=== PATIENT | male | born 1980 | race Two or more races ===

== ENCOUNTER 2023-01-11 15:14 | Inpatient (IN) ==
[2023-01-11] MEDS ORDERED: NS 1,000 ML IV 1,000 ML ONE (15:27)
[2023-01-11] MEDS ORDERED: ZOFRAN INJ 4 MG VIAL ONE ×3 (15:27→21:44)
[2023-01-11] MEDS ORDERED: ZOFRAN INJ 4 MG VIAL IVP ONE ×2 (15:46→18:22)
[2023-01-11] MEDS ORDERED: NS 1,000 ML IV 1,000 ML IV ONE (15:46)
--- NOTE | 2023-01-11 16:08 | DR.ABDMALE ---
HPI Time seen Time Seen by Provider: 01/11/23 16:07 PCP Primary Care Physician: NFD Complaint Chief Complaint Doctors Comments: 42 y/o male, currently an inmate, brought in with abdominal pain. Having constant, diffuse abdominal pain over the past 4 da ys. worse with moving, palpation. Nothing makes it better. Denies fever, chills, bowel or bladder issues. No h/o prior abdominal surgeries. Denies medical problems. Chief Complaint:: PT TO ER WITH C/O NAUSEA AND VOMITING FOR FOUR DAYS ( 5 TIMES IN 24 HOURS , AND ITS BILE COLORED), PT REPORTS THAT HIS ABD IS BURNING AND STINGING ALL OVER , WALKING MAKES PAIN WORSE,BR COVID-19 Coronavirus risk:travel/contact w/high risk person: No Has patient experienced Coronavirus symptoms: No Reviewed Nurses Notes Review: Yes Source History provided by:: Patient Mode of arrival Mode of Arrival: Wheelchair Timing Onset of Chief Complaint: 01/08/23 PMH PMH Past Medical History: No Past Surgical History: No Family History History of Family Medical Conditions: No Social History Does patient currently use any type of tobacco product: No Have you used tobacco products in the last 12 months: No Type of Tobacco Use: None Does any household member use tobacco: No Alcohol Use: None Do you use any recreational Drugs:: No Lives With: Family Lives Where: Home Travel Risk Coronavirus risk:travel/contact w/high risk person: No Has patient experienced Coronavirus symptoms: No Infectious screening In the last 2 months have you had wt loss of >10#?: NO Have you had fever, night sweats or hemotysis?: No Have you traveled outside the country in the last 6 months?: No Isolation: Standard ROS Review of Systems Constitutional: No Symptoms Reported Eyes: No Symptoms Reported ENTM: No Symptoms Reported Respiratoy: No Symptoms Reported Cardiovascular: No Symptoms Reported Gastrointestinal/Abdominal: See HPI Genitourinary: No Symptoms Reported Neurological: No Symptoms Reported Musculoskeletal: No Symptoms Reported Integumentary: No Symptoms Reported Hematologic/Lymphatic: No Symptoms Reported All Other Systems: Reviewed and Negative PE Vital Signs Vital Signs: Temp Pulse Resp BP Pulse Ox 01/11/23 19:15 111 H 23 96 01/11/23 19:00 153/106 01/11/23 19:00 117 H 27 H 96 01/11/23 19:00 153/106 01/11/23 18:49 154/109 01/11/23 18:49 114 H 26 H 98 01/11/23 18:45 86 29 H 97 01/11/23 18:30 104 H 28 H 98 01/11/23 18:30 150/94 01/11/23 18:55 22 01/11/23 18:15 104 H 35 H 99 01/11/23 18:00 102 H 22 100 01/11/23 18:00 145/90 01/11/23 17:45 103 H 23 99 01/11/23 17:30 141/96 01/11/23 17:30 106 H 32 H 99 01/11/23 17:15 109 H 29 H 99 01/11/23 17:00 111 H 31 H 98 01/11/23 17:00 150/76 01/11/23 17:00 111 H 31 H 98 01/11/23 17:00 150/76 01/11/23 16:45 106 H 23 98 01/11/23 16:30 101 H 25 H 100 01/11/23 16:30 144/88 01/11/23 16:15 105 H 23 100 01/11/23 16:00 104 H 21 99 01/11/23 16:00 149/92 01/11/23 15:45 109 H 21 98 01/11/23 15:30 118 H 29 H 96 01/11/23 15:30 142/95 01/11/23 15:27 120 H 31 H 97 01/11/23 15:16 98.8 F 131 H 22 139/97 96 General General Appearance: Alert and In No Apparent Distress Eyes Eye exam: PERRL and EOMI ENT ENT Exam: Normal Exam and Mucous Membranes Moist Neck Neck Exam: Normal Inspection Respiratory Respiratory Exam: Normal Lung Sounds Bilat; negative Accessory Muscle Use or Respiratory Distress Cardiovascular Cardiovascular Exam: Regular Rate, Normal Rhythm and Normal Heart Sounds Abdominal Exam Abdominal Exam: Hypoactive Bowel Sounds (+ degree of distension, with increased tympany) Abdominal Tenderness: Diffuse (with degree of rigidity, has guarding and rebound. ) Extremeties Extremities Exam: Normal Inspection Neurologic Neurological Exam: Alert, Oriented X3 and CN II-XII Intact; negative Motor Sensory Deficit Skin Skin Exam: Warm and Dry COURSE Treatment Treatment: 42 y/o inmate, ill x 4 days with abdominal pain. Exam highly concerning for a surgical abdomen, possible perforation. W/u initiated. PT given IV fluids, IV zofran. 1831 - labs were overall acceptable, excpet for low sodium, 129. Acute abdomen series does not show free air, but does have marked intestinal distension. CT of the abd/pelvis w/IV contrast, shows obstructive changes, with a short segment of the sigmoid colon with wall thickening, concerning for neoplastic process. Discussed with surgery, Dr Gama, will admit. Pt givne IV morphine/zofran for pain. NG tube inserted. ROR Labs Reviewed Result Diagrams: 01/13/23 05:35 01/13/23 05:35 Laboratory: WBC 9.7 X10^3/uL (3.6-10.0) 01/11/23 15:45 RBC 5.62 X10^6/uL (4.7-6.0) 01/11/23 15:45 Hgb 17.4 g/dL (13.5-18.0) 01/11/23 15:45 Hct 48.0 % (42.0-54.0) 01/11/23 15:45 MCV 85.4 fL (80.0-100.0) 01/11/23 15:45 MCH 31.0 pg (27.0-34.0) 01/11/23 15:45 MCHC 36.3 g/dL (33.0-35.0) H 01/11/23 15:45 RDW 13.4 % (11.6-16.5) 01/11/23 15:45 Plt Count 431 X10^3/uL (150.0-450.0) 01/11/23 15:45 MPV 8.4 fL (7.4-11.0) 01/11/23 15:45 Neut % (Auto) 65.6 % (42.0-75.0) 01/11/23 15:45 Lymph % (Auto) 20.9 % (21.0-51.0) L 01/11/23 15:45 [place] % (Auto) 12.6 % (0.0-13.0) 01/11/23 15:45 Eos % (Auto) 0.6 % (0.9-2.9) L 01/11/23 15:45 Baso % (Auto) 0.3 % (0.2-1.0) 01/11/23 15:45 Neut # (Auto) 6.4 x10^3/uL (2.2-4.8) H 01/11/23 15:45 Lymph # (Auto) 2.0 X10^3/uL (1.3-2.9) 01/11/23 15:45 [place] # (Auto) 1.2 x10^3/uL (0.3-0.8) H 01/11/23 15:45 Eos # (Auto) 0.1 x10^3/uL (0.0-0.2) 01/11/23 15:45 Baso # (Auto) 0.0 X10^3/uL (0.0-0.1) 01/11/23 15:45 Absolute Nucleated RBC 0.4 /100WBC 01/11/23 15:45 Sodium 126 mmol/L (136-145) L 01/11/23 15:45 Corrected Sodium 128 mmol/L (136-145) L 01/11/23 15:45 Potassium 3.7 mmol/L (3.5-5.1) 01/11/23 15:45 Chloride 88 mmol/L (98-107) L 01/11/23 15:45 Carbon Dioxide 29.0 mmol/L (21-32) 01/11/23 15:45 BUN 28 mg/dL (7-18) H 01/11/23 15:45 Creatinine 0.91 mg/dL (0.70-1.30) 01/11/23 15:45 Est GFR (MDRD) Af Amer > 60 (>60) 01/11/23 15:45 Est GFR (MDRD) Non-Af > 60 (>60) 01/11/23 15:45 Glucose 179 mg/dL (65-99) H 01/11/23 15:45 Calcium 8.2 mg/dL (8.5-10.1) L 01/11/23 15:45 Corrected Calcium TNP 01/11/23 15:45 Total Bilirubin 1.60 mg/dL (0.2-1.0) H 01/11/23 15:45 AST 18 Units/L (15-37) 01/11/23 15:45 ALT 16 Units/L (12-78) 01/11/23 15:45 Alkaline Phosphatase 66 Units/L (46-116) 01/11/23 15:45 Total Protein 7.4 g/dL (6.4-8.2) 01/11/23 15:45 Albumin 3.7 g/dL (3.4-5.0) 01/11/23 15:45 Globulin 3.7 g/dL (2.5-4.5) 01/11/23 15:45 Albumin/Globulin Ratio 1.0 Ratio (1.1-2.1) L 01/11/23 15:45 Lipase 41 Units/L (73-393) L 01/11/23 15:45 Opioid Opioid Risk Tool Age (Lauro box if 16-45): Yes History of Preadolescent Sexual Abuse: No Total: 1 Total Score Risk Category: Low Risk Copyright: Umesh CHACON predicting aberrant behaviors Discharge Plan Diagnosis Discharge Problem: Intestinal obstruction, Hyponatremia Discharge Plan Patient Disposition: ADMITTED INPATIENT Condition: Stable
[2023-01-11 16:23] LABS: EOSINOPHILS # (AUTO) 0.1 x10^3/uL (0.0-0.2); MEAN PLATELET VOLUME 8.4 fL (7.4-11.0)
[2023-01-11 16:27] LABS: BASOPHILS % (AUTO) 0.3 % (0.2-1.0); EOSINOPHILS % (AUTO) 0.6 % (0.9-2.9); MEAN CORPUSCULAR VOLUME 85.4 fL (80.0-100.0); MONOCYTES # (AUTO) 1.2 x10^3/uL (0.3-0.8)
[2023-01-11 16:34] LABS: ALANINE AMINOTRANSFERASE 16 Units/L (12-78); ALBUMIN 3.7 g/dL (3.4-5.0); ALKALINE PHOSPHATASE 66 Units/L (46-116); ASPARTATE AMINO TRANSFERASE 18 Units/L (15-37); BLOOD UREA NITROGEN 28 mg/dL (7-18); CALCIUM 8.2 mg/dL (8.5-10.1); CHLORIDE 88 mmol/L (98-107); COR NA(FOR HYPERGLY) 128 mmol/L (136-145); CREATININE 0.91 mg/dL (0.70-1.30); GLUCOSE 179 mg/dL (65-99); LIPASE 41 Units/L (73-393); POTASSIUM 3.7 mmol/L (3.5-5.1); SODIUM 126 mmol/L (136-145); TOTAL PROTEIN 7.4 g/dL (6.4-8.2); eGFR NON BLACK RACES > 60 (>60)
[2023-01-11 16:37] LABS: HEMOGLOBIN 17.4 g/dL (13.5-18.0); LYMPHOCYTES % (AUTO) 20.9 % (21.0-51.0); MEAN CORPUSCULAR HGB CONC 36.3 g/dL (33.0-35.0); MONOCYTES % (AUTO) 12.6 % (0.0-13.0); NEUTROPHILS # (AUTO) 6.4 x10^3/uL (2.2-4.8); NEUTROPHILS % (AUTO) 65.6 % (42.0-75.0); PLATELET COUNT 431 X10^3/uL (150.0-450.0); RED BLOOD COUNT 5.62 X10^6/uL (4.7-6.0); RED CELL DISTRIBUTION WIDTH 13.4 % (11.6-16.5); WHITE BLOOD COUNT 9.7 X10^3/uL (3.6-10.0)
--- NOTE | 2023-01-11 17:58 | RAD ---
HISTORYAbdominal pain deleteSTUDYACUTE ABDOMEN SERIESCOMPARISONNoneFINDINGSThe trachea is midline. The cardiac silhouette is unremarkable. The lungs are clear without focal infiltrate or effusion. The bony thorax is unremarkable.Flat plate and upright evaluation of the abdomen demonstrates multiple air-filled loops of small bowel within the central abdomen. Distal colonic gas remains present. The findings may be on the basis of developing ileus or early small bowel obstruction. Continued follow-up will be needed in this regard no pathological soft tissue mass or calcification can be observed. The bony structures are grossly intact.IMPRESSION1. No acute cardiopulmonary disease.2. Multiple air-filled loops of distended small bowel within the central abdomen with distal colonic gas. Differential considerations detailed above.Electronically signed by: LAKE SELF (Jan 11, 2023 17:57:41)
--- NOTE | 2023-01-11 18:05 | CT ---
HISTORYSEVERE ABD PAIN, FEVERSTUDYABDOMEN/PELVIS WITH CONCOMPARISONRadiographs from January 11, 2023TECHNIQUEAxial CT images of the abdomen and pelvis were obtained after the administration of IV contrast, 100 mL Omnipaque 350, and reformatted into coronal and sagittal planes for further evaluation.Radiation dose: 209.52 mGy-cm total DLPFINDINGSLung bases are clear.Stomach appears normal.Solid visceral organs of the upper abdomen are unremarkable.Gallbladder appears normal with no biliary dilatation.Homogeneous enhancement of the kidneys without hydronephrosis or hydroureter.Unremarkable appearance of the urinary bladder.Imaged reproductive structures are unremarkable.Short-segment colonic wall thickening in the sigmoid colon. Involved segment measures approximately 5 cm in length with the wall thickening measuring up to 1.3 cm.Moderate stool burden proximal to the short-segment sigmoid colonic wall thickening. Moderate to severe distension of the colon. Pneumatosis coli involving the cecum and ascending colon.Multiple moderately distended gas and fluid-filled loops of small bowel; throughout the abdomen.No evidence of acute appendicitis.No pneumoperitoneum.Small amount of free fluid in the pelvis.No adenopathy.No acute osseous abnormality.IMPRESSIONShort-segment colonic wall thickening involving the distal sigmoid colon is concerning for a neoplastic process. The distal sigmoid obstruction results in moderate to severe distension of the colon, containing gas and stool, in addition to pneumatosis coli involving the cecum and ascending colon. The pneumatosis coli could represent the development of ischemic colitis secondary to the degree of distension. The moderate gas and fluid-filled distention of the small bowel is consistent with a functional obstruction secondary to the colon obstruction.Electronically signed by: Jose De Jesus Newton (Jan 11, 2023 18:04:17)
[2023-01-11] MEDS ORDERED: MORPHINE SULFATE INJ 4 MG IVP ONE (18:22)
[2023-01-11] MEDS ORDERED: MORPHINE SULFATE INJ 4 MG ONE (18:29)
--- NOTE | 2023-01-11 20:00 | RAD ---
EXAM: ABDOMEN X-RAY (or KUB)HISTORY: Nasogastric tube verification status post placement.TECHNIQUE: Supine viewCOMPARISON: None.FINDINGS:Nasogastric tube is noted with a U-shaped loop in the proximal stomach and the distal tip (coursing cephalad) within the lateral gastric fundus.There are up to 5.8 cm dilated air-filled small bowel loops and up to 12.4 cm dilated air-filled right-sided large bowel loops; DDx includes ileus and/or large bowel obstruction in the appropriate clinical setting.There is no gross organomegaly, free intraperitoneal air, or suspicious calcifications seen. The visualized bony structures are within normal limits.IMPRESSION:1. Nasogastric tube is noted with a U-shaped loop in the proximal stomach and the distal tip (coursing cephalad) within the lateral gastric fundus.2. Up to 5.8 cm dilated air-filled small bowel loops and up to 12.4 cm dilated air-filled right-sided large bowel loops; DDx includes ileus and/or large bowel obstruction in the appropriate clinical setting.Electronically signed by: Todd Cifuentes (Jan 11, 2023 19:59:18)
[2023-01-11] MEDS ORDERED: MORPHINE SULFATE INJ 2 MG INJ IVP ONE (21:40)
[2023-01-11] MEDS ORDERED: MORPHINE SULFATE INJ 2 MG INJ ONE (21:44)
[2023-01-11] MEDS: ZOFRAN INJ 4 MG VIAL IVP PRN ×2 (21:52→21:54)
[2023-01-11] MEDS: PROTONIX INJ 40 MG VIAL IVP SCH (22:51)
[2023-01-11] MEDS: D5 1/2 NS 1,000 ML 1,000 ML IV SCH (22:51)
[2023-01-12 00:20] VITALS: BMI 25.1
[2023-01-12 01:08] LABS: BILIRUBIN,URINE NEGATIVE (NEGATIVE); BLOOD/HEMOGLOBIN,URINE 1+ (NEGATIVE); GLUCOSE, URINE NEGATIVE (NEGATIVE); KETONES,URINE 2+ (NEGATIVE); LEUKOCYTE ESTERASE ,URINE NEGATIVE (NEGATIVE); NITRITES,URINE NEGATIVE (NEGATIVE); PH,URINE 6.5 (5.0 - 8.0); PROTEIN,URINE 2+ (NEGATIVE); UROBILINOGEN,URINE NORMAL (NORMAL)
[2023-01-12 01:13] LABS: APPEARANCE,URINE CLEAR (CLEAR); BACTERIA,URINE NEGATIVE /HPF (NEGATIVE); COLOR,URINE DARK YELLOW (YELLOW); RBC,URINE 0-2 /HPF (0-3); SQUAMOUS EPITHELIAL CELL,UR RARE /HPF (NEGATIVE)
[2023-01-12] MEDS: MORPHINE SULFATE INJ 4 MG IVP PRN ×3 (03:16→19:32)
[2023-01-12] MEDS: ZOFRAN INJ 4 MG VIAL IVP PRN (03:16)
[2023-01-12] MEDS: D5 1/2 NS 1,000 ML 1,000 ML IV SCH ×5 (03:48→23:35)
[2023-01-12 06:47] LABS: EOSINOPHILS # (AUTO) 0.1 x10^3/uL (0.0-0.2); HEMOGLOBIN 15.7 g/dL (13.5-18.0)
[2023-01-12 06:56] LABS: ALANINE AMINOTRANSFERASE 13 Units/L (12-78); ALBUMIN 2.9 g/dL (3.4-5.0); ALKALINE PHOSPHATASE 51 Units/L (46-116); ASPARTATE AMINO TRANSFERASE 12 Units/L (15-37); BLOOD UREA NITROGEN 20 mg/dL (7-18); CALCIUM 7.5 mg/dL (8.5-10.1); CARBON DIOXIDE 30.9 mmol/L (21-32); CHLORIDE 92 mmol/L (98-107); COR CA(FOR HYPOALB) 8.4 mg/dL (8.5-10.1); COR NA(FOR HYPERGLY) 130 mmol/L (136-145); CREATININE 0.74 mg/dL (0.70-1.30); GLUCOSE 155 mg/dL (65-99); POTASSIUM 3.4 mmol/L (3.5-5.1); SODIUM 129 mmol/L (136-145); TOTAL PROTEIN 6.1 g/dL (6.4-8.2); eGFR NON BLACK RACES > 60 (>60)
[2023-01-12 07:03] LABS: HEMATOCRIT 43.1 % (42.0-54.0); MEAN CORPUSCULAR HEMOGLOBIN 31.1 pg (27.0-34.0); MEAN CORPUSCULAR VOLUME 85.4 fL (80.0-100.0); RED BLOOD COUNT 5.04 X10^6/uL (4.7-6.0); WHITE BLOOD COUNT 5.9 X10^3/uL (3.6-10.0)
[2023-01-12 07:04] LABS: BASOPHILS % (AUTO) 0.5 % (0.2-1.0); EOSINOPHILS % (AUTO) 1.6 % (0.9-2.9); LYMPHOCYTES # (AUTO) 1.9 X10^3/uL (1.3-2.9); LYMPHOCYTES % (AUTO) 32.8 % (21.0-51.0); MEAN CORPUSCULAR HGB CONC 36.4 g/dL (33.0-35.0); MEAN PLATELET VOLUME 8.1 fL (7.4-11.0); MONOCYTES # (AUTO) 0.8 x10^3/uL (0.3-0.8); MONOCYTES % (AUTO) 13.2 % (0.0-13.0); NEUTROPHILS # (AUTO) 3.1 x10^3/uL (2.2-4.8); NEUTROPHILS % (AUTO) 51.9 % (42.0-75.0); PLATELET COUNT 386 X10^3/uL (150.0-450.0); RED CELL DISTRIBUTION WIDTH 13.4 % (11.6-16.5)
[2023-01-12] MEDS: PROTONIX INJ 40 MG VIAL IVP SCH ×2 (09:01→21:35)
--- NOTE | 2023-01-12 12:10 | DR.PROGNOT ---
HOSPITAL PROGRESS NOTE Progress Note for Day of: Progress Note Date: 01/12/23 Chief Complaint Chief Complaint: moderate abdominal pain with distention , no BM yet . KUB still showing dilated small bowel and RT colon . Na 129..BUN 20 ..LFT normal WBC normal Past Medical Family Social History Past Med/Fam/Surg Hx: No changes since H&P Allergies: Allergies No Known Allergies Allergy (Verified 01/11/23 15:16) Review Of Systems ROS: No change since H&P Vital Signs Vital Signs: Vital Signs Temperature 98.1 F Pulse Rate [Left] 94 Respiratory Rate 18 Blood Pressure [Left Arm] 134/87 O2 Sat by Pulse Oximetry 97 01/12/23 08:00 Temperature 98.1 F Temperature Source Oral Pulse Rate [Left] 94 H Respiratory Rate 18 O2 Sat by Pulse Oximetry 97 Oxygen Delivery Method Room Air Blood Pressure [Left Arm] 134/87 Blood Pressure Mean [Left Arm] 102 Blood Pressure Source [Left Arm] Automatic Cuff Physical Exam Oriented: Normal Respiratory: Normal Cardiovascular: Normal GI:Auscultation: Other (moderate distention and diffuse tenderness , BS+but hypoactive ..) Speech Pattern: Clear and Appropriate Laboratory and Diagnostics Result Diagrams: 01/12/23 05:33 01/12/23 05:33 Labs: Laboratory WBC 5.9 X10^3/uL (3.6-10.0) 01/12/23 05:33 RBC 5.04 X10^6/uL (4.7-6.0) 01/12/23 05:33 Hgb 15.7 g/dL (13.5-18.0) 01/12/23 05:33 Hct 43.1 % (42.0-54.0) 01/12/23 05:33 MCV 85.4 fL (80.0-100.0) 01/12/23 05:33 MCH 31.1 pg (27.0-34.0) 01/12/23 05:33 MCHC 36.4 g/dL (33.0-35.0) H 01/12/23 05:33 RDW 13.4 % (11.6-16.5) 01/12/23 05:33 Plt Count 386 X10^3/uL (150.0-450.0) 01/12/23 05:33 MPV 8.1 fL (7.4-11.0) 01/12/23 05:33 Neut % (Auto) 51.9 % (42.0-75.0) 01/12/23 05:33 Lymph % (Auto) 32.8 % (21.0-51.0) 01/12/23 05:33 [place] % (Auto) 13.2 % (0.0-13.0) H 01/12/23 05:33 Eos % (Auto) 1.6 % (0.9-2.9) 01/12/23 05:33 Baso % (Auto) 0.5 % (0.2-1.0) 01/12/23 05:33 Neut # (Auto) 3.1 x10^3/uL (2.2-4.8) 01/12/23 05:33 Lymph # (Auto) 1.9 X10^3/uL (1.3-2.9) 01/12/23 05:33 [place] # (Auto) 0.8 x10^3/uL (0.3-0.8) 01/12/23 05:33 Eos # (Auto) 0.1 x10^3/uL (0.0-0.2) 01/12/23 05:33 Baso # (Auto) 0.0 X10^3/uL (0.0-0.1) 01/12/23 05:33 Absolute Nucleated RBC 0.2 /100WBC 01/12/23 05:33 Sodium 129 mmol/L (136-145) L 01/12/23 05:33 Corrected Sodium 130 mmol/L (136-145) L 01/12/23 05:33 Potassium 3.4 mmol/L (3.5-5.1) L 01/12/23 05:33 Chloride 92 mmol/L (98-107) L 01/12/23 05:33 Carbon Dioxide 30.9 mmol/L (21-32) 01/12/23 05:33 BUN 20 mg/dL (7-18) H 01/12/23 05:33 Creatinine 0.74 mg/dL (0.70-1.30) 01/12/23 05:33 Est GFR (MDRD) Af Amer > 60 (>60) 01/12/23 05:33 Est GFR (MDRD) Non-Af > 60 (>60) 01/12/23 05:33 Glucose 155 mg/dL (65-99) H 01/12/23 05:33 Calcium 7.5 mg/dL (8.5-10.1) L 01/12/23 05:33 Corrected Calcium 8.4 mg/dL (8.5-10.1) L 01/12/23 05:33 Total Bilirubin 1.10 mg/dL (0.2-1.0) H 01/12/23 05:33 AST 12 Units/L (15-37) L 01/12/23 05:33 ALT 13 Units/L (12-78) 01/12/23 05:33 Alkaline Phosphatase 51 Units/L (46-116) 01/12/23 05:33 Total Protein 6.1 g/dL (6.4-8.2) L 01/12/23 05:33 Albumin 2.9 g/dL (3.4-5.0) L 01/12/23 05:33 Globulin 3.2 g/dL (2.5-4.5) 01/12/23 05:33 Albumin/Globulin Ratio 0.9 Ratio (1.1-2.1) L 01/12/23 05:33 Lipase 41 Units/L (73-393) L 01/11/23 15:45 Specimen Type Clean catch urine 01/12/23 00:57 Urine Color Dark yellow (YELLOW) 01/12/23 00:57 Urine Appearance Clear (CLEAR) 01/12/23 00:57 Urine pH 6.5 (5.0 - 8.0) 01/12/23 00:57 Ur Specific [place] 1.015 (1.000-1.030) 01/12/23 00:57 Urine Protein 2+ (NEGATIVE) 01/12/23 00:57 Urine Glucose (UA) Negative (NEGATIVE) 01/12/23 00:57 Urine Ketones 2+ (NEGATIVE) 01/12/23 00:57 Urine Blood 1+ (NEGATIVE) 01/12/23 00:57 Urine Nitrite Negative (NEGATIVE) 01/12/23 00:57 Urine Bilirubin Negative (NEGATIVE) 01/12/23 00:57 Urine Urobilinogen Normal (NORMAL) 01/12/23 00:57 Ur Leukocyte Esterase Negative (NEGATIVE) 01/12/23 00:57 Urine RBC 0-2 /HPF (0-3) 01/12/23 00:57 Urine WBC None seen /HPF (0-5) 01/12/23 00:57 Ur Squamous Epith Cells Rare /HPF (NEGATIVE) 01/12/23 00:57 Urine Bacteria Negative /HPF (NEGATIVE) 01/12/23 00:57 Ur Culture Indicated? No/not indicated 01/12/23 00:57 Assessment and Plan 1: obstructing lesion of the sigmoid colon. to keep NPO , IVF . colonoscopy . 2: bowel obstruction . same as above . d/w Pt in details .. Problem Patient Problems: Patient Problems (Updated 01/11/23 @ 18:35 by Amaury Reyes) Intestinal obstruction (Acute) K56.609 Hyponatremia (Acute) E87.1
[2023-01-12] MEDS ORDERED: POTASSIUM CHLORIDE LIQ PO PRN (12:37)
[2023-01-12] MEDS ORDERED: KLOR-CON PO PRN (12:37)
[2023-01-12] MEDS ORDERED: MICRO K EXTEN CAP 10 MEQ PO PRN (12:37)
[2023-01-12] MEDS ORDERED: POTASSIUM CHL 60 MEQ/NS 0.45% 500 ML IV PRN (12:37)
[2023-01-12] MEDS ORDERED: MAGNESIUM SULFATE 1 GRAM/100 mL PREMIX 1 G/100 ML BAG IV PRN (12:37)
[2023-01-12] MEDS ORDERED: K-DUR TAB 20 MEQ PO PRN (12:37)
[2023-01-12] MEDS ORDERED: POTASSIUM CHL 40 MEQ/NS 0.45% 500 ML IV PRN (12:37)
[2023-01-12] MEDS: K-RIDER 10 MEQ/NS 100 ML 10 MEQ/100 ML BAG IV PRN ×2 (14:38→16:33)
--- NOTE | 2023-01-12 18:39 | RAD ---
HISTORYSBOSTUDYKUBCOMPARISONKU B from [address] abdomen and pelvis from 1 day prior.TECHNIQUEAbdomen KUB 2 images.FINDINGSThe small-bowel is distended and gas-filled. There is a large amount of stool in the colon which is also distended. Subtle pneumatosis seen in the right lower quadrant as seen on prior study. Contrast is seen in the bowel. There is an NG tube in good position. No free air identified.IMPRESSIONDilated large and small bowel due to obstruction from known sigmoid colon stenosis that may be neoplastic. NG tube in good position.Electronically signed by: Nagi Dempsey (Jan 12, 2023 18:38:14)
[2023-01-12] MEDS ORDERED: FLEET ENEMA ADULT PR ONE (19:39)
[2023-01-12] MEDS ORDERED: FLEET ENEMA ADULT ONE (19:41)
[2023-01-12] MEDS ORDERED: DIPRIVAN VIAL 20 ML ONE (20:04)
[2023-01-12] MEDS ORDERED: NS 1,000 ML IV 1,000 ML ONE (20:18)
[2023-01-12] MEDS: MORPHINE SULFATE INJ 2 MG INJ IVP PRN (22:56)
[2023-01-13] MEDS: MORPHINE SULFATE INJ 2 MG INJ IVP PRN (01:54)
[2023-01-13] MEDS: D5 1/2 NS 1,000 ML 1,000 ML IV SCH ×4 (04:37→22:38)
[2023-01-13 06:28] LABS: BASOPHILS % (AUTO) 0.2 % (0.2-1.0); EOSINOPHILS # (AUTO) 0.2 x10^3/uL (0.0-0.2); EOSINOPHILS % (AUTO) 3.8 % (0.9-2.9); HEMATOCRIT 40.9 % (42.0-54.0); HEMOGLOBIN 14.9 g/dL (13.5-18.0); LYMPHOCYTES # (AUTO) 1.1 X10^3/uL (1.3-2.9); MEAN CORPUSCULAR HGB CONC 36.5 g/dL (33.0-35.0); MEAN CORPUSCULAR VOLUME 84.9 fL (80.0-100.0); MEAN PLATELET VOLUME 7.6 fL (7.4-11.0); MONOCYTES # (AUTO) 0.6 x10^3/uL (0.3-0.8); MONOCYTES % (AUTO) 14.5 % (0.0-13.0); NEUTROPHILS # (AUTO) 2.4 x10^3/uL (2.2-4.8); NEUTROPHILS % (AUTO) 55.5 % (42.0-75.0); PLATELET COUNT 388 X10^3/uL (150.0-450.0); RED BLOOD COUNT 4.82 X10^6/uL (4.7-6.0); RED CELL DISTRIBUTION WIDTH 13.3 % (11.6-16.5); WHITE BLOOD COUNT 4.4 X10^3/uL (3.6-10.0)
[2023-01-13 06:41] LABS: ALANINE AMINOTRANSFERASE 13 Units/L (12-78); ALBUMIN 2.8 g/dL (3.4-5.0); ALKALINE PHOSPHATASE 47 Units/L (46-116); ASPARTATE AMINO TRANSFERASE 9 Units/L (15-37); BLOOD UREA NITROGEN 16 mg/dL (7-18); CALCIUM 7.3 mg/dL (8.5-10.1); CARBON DIOXIDE 32.6 mmol/L (21-32); CHLORIDE 90 mmol/L (98-107); COR CA(FOR HYPOALB) 8.3 mg/dL (8.5-10.1); COR NA(FOR HYPERGLY) 130 mmol/L (136-145); CREATININE 0.76 mg/dL (0.70-1.30); GLUCOSE 158 mg/dL (65-99); POTASSIUM 3.3 mmol/L (3.5-5.1); SODIUM 129 mmol/L (136-145); eGFR NON BLACK RACES > 60 (>60)
[2023-01-13 07:35] LABS: PLATELET MORPHOLOGY COMMENT NORMAL (NORMAL)
--- NOTE | 2023-01-13 08:35 | EKG ---
Test Reason : surgical procedure Blood Pressure : */* mmHG Vent. Rate : 103 BPM Atrial Rate : 103 BPM P-R Int : 144 ms QRS Dur : 78 ms QT Int : 344 ms P-R-T Axes : 35 41 27 degrees QTc Int : 450 ms Sinus tachycardia Otherwise normal ECG No previous ECGs available Confirmed by Mustapha Sanchez ([id number]) on 01/13/2023 6:38:12 PM Referred By: Confirmed By: Mustapha Sanchez
[2023-01-13] MEDS ORDERED: ANCEF VIAL 1 GRAM ONE (08:54)
[2023-01-13] MEDS ORDERED: LR 1,000 ML IV 1,000 ML IV ONE ×2 (08:54→10:34)
[2023-01-13] MEDS ORDERED: NS 100 ML IV 100 ML ONE (08:55)
[2023-01-13] MEDS ORDERED: QUELICIN (OR ANECTINE) ONE (09:01)
[2023-01-13] MEDS ORDERED: ZEMURON 100 MG VIAL ONE (09:01)
[2023-01-13] MEDS ORDERED: FENTANYL VIAL INJ 250 mcg ONE (09:01)
[2023-01-13] MEDS ORDERED: DIPRIVAN VIAL 20 ML ONE (09:01)
[2023-01-13] MEDS ORDERED: VERSED ONE (09:01)
[2023-01-13] MEDS ORDERED: ZOFRAN INJ 4 MG VIAL ONE (09:02)
[2023-01-13] MEDS ORDERED: PEPCID 20 MG VIAL ONE (09:02)
[2023-01-13] MEDS ORDERED: BACTROBAN TOPICAL OINT ONE (09:03)
[2023-01-13] MEDS ORDERED: POLYMYXIN B SULFATE ONE (09:03)
[2023-01-13] MEDS ORDERED: SUPRANE ONE ×2 (09:18→10:39)
[2023-01-13] MEDS ORDERED: DILAUDID INJ ONE (10:07)
[2023-01-13] MEDS ORDERED: BARHEMSYS INJ IVP PRN (10:59)
[2023-01-13] MEDS ORDERED: BENADRYL INJ 50 MG VIAL IVP PRN (10:59)
[2023-01-13] MEDS ORDERED: ZOFRAN INJ 4 MG VIAL IVP PRN (10:59)
[2023-01-13] MEDS ORDERED: REGLAN INJ 10 MG VIAL IVP PRN (10:59)
[2023-01-13] MEDS ORDERED: DILAUDID INJ IVP PRN (10:59)
[2023-01-13] MEDS ORDERED: BRIDION ONE (11:01)
[2023-01-13] MEDS: DILAUDID INJ IVP PRN ×3 (14:25→20:44)
[2023-01-13] MEDS: ZOSYN VIAL 3.375 GRAMS 3.375 G in NS 100 ML IV 100 ML IV SCH ×2 (14:25→20:38)
[2023-01-13] MEDS: PROTONIX INJ 40 MG VIAL IVP SCH ×2 (14:25→20:38)
[2023-01-13] MEDS: ZOFRAN INJ 4 MG VIAL IVP PRN ×2 (14:25→17:42)
[2023-01-13] MEDS: K-RIDER 10 MEQ/NS 100 ML 10 MEQ/100 ML BAG IV PRN ×3 (15:09→18:48)
[2023-01-14] MEDS: ZOSYN VIAL 3.375 GRAMS 3.375 G in NS 100 ML IV 100 ML IV SCH ×3 (03:26→20:37)
[2023-01-14] MEDS: DILAUDID INJ IVP PRN ×4 (03:30→20:38)
--- NOTE | 2023-01-14 06:16 | RAD ---
HISTORYPreop bowel obstructionSTUDYChest AP [id number]/16/2023FINDINGSTher e is a nasogastric tube with its tip and side-port in the expected position of the stomach. Heart size is normal. [place] are normal. Lung duran are clear. No pleural effusions are identified. Bony thorax is unremarkable.IMPRESSIONNo significant abnormality identifiedElectronically signed by: NJ DOYLE (Jan 14, 2023 06:15:32)
[2023-01-14 06:31] LABS: BASOPHILS % (AUTO) 0.3 % (0.2-1.0); EOSINOPHILS # (AUTO) 0.1 x10^3/uL (0.0-0.2); MEAN CORPUSCULAR HEMOGLOBIN 31.3 pg (27.0-34.0); MEAN PLATELET VOLUME 7.4 fL (7.4-11.0); RED BLOOD COUNT 4.47 X10^6/uL (4.7-6.0); WHITE BLOOD COUNT 7.7 X10^3/uL (3.6-10.0)
[2023-01-14 06:34] LABS: EOSINOPHILS % (AUTO) 1.4 % (0.9-2.9); HEMATOCRIT 38.3 % (42.0-54.0); LYMPHOCYTES # (AUTO) 1.4 X10^3/uL (1.3-2.9); LYMPHOCYTES % (AUTO) 18.3 % (21.0-51.0); MEAN CORPUSCULAR HGB CONC 36.5 g/dL (33.0-35.0); MEAN CORPUSCULAR VOLUME 85.7 fL (80.0-100.0); MONOCYTES # (AUTO) 0.9 x10^3/uL (0.3-0.8); MONOCYTES % (AUTO) 12.1 % (0.0-13.0); NEUTROPHILS # (AUTO) 5.2 x10^3/uL (2.2-4.8); NEUTROPHILS % (AUTO) 67.9 % (42.0-75.0); PLATELET COUNT 365 X10^3/uL (150.0-450.0)
[2023-01-14 06:39] LABS: ALANINE AMINOTRANSFERASE 12 Units/L (12-78); ALBUMIN 2.3 g/dL (3.4-5.0); ALKALINE PHOSPHATASE 42 Units/L (46-116); ASPARTATE AMINO TRANSFERASE 11 Units/L (15-37); BLOOD UREA NITROGEN 14 mg/dL (7-18); CALCIUM 7.3 mg/dL (8.5-10.1); CARBON DIOXIDE 30.1 mmol/L (21-32); CHLORIDE 92 mmol/L (98-107); COR CA(FOR HYPOALB) 8.7 mg/dL (8.5-10.1); COR NA(FOR HYPERGLY) 130 mmol/L (136-145); CREATININE 0.75 mg/dL (0.70-1.30); GLUCOSE 137 mg/dL (65-99); SODIUM 129 mmol/L (136-145); TOTAL PROTEIN 5.7 g/dL (6.4-8.2); eGFR NON BLACK RACES > 60 (>60)
[2023-01-14 07:16] LABS: BAND NEUTROPHILS % 12 % (0-10); METAMYELOCYTES % 1; PLATELET MORPHOLOGY COMMENT NORMAL (NORMAL); PROMYELOCYTES % 1
[2023-01-14] MEDS: PROTONIX INJ 40 MG VIAL IVP SCH ×2 (08:44→20:37)
[2023-01-14] MEDS: ZOFRAN INJ 4 MG VIAL IVP PRN (08:44)
[2023-01-14] MEDS: LOVENOX INJ 40 MG SYR SC SCH (08:45)
--- NOTE | 2023-01-14 10:36 | DR.PROGNOT ---
HOSPITAL PROGRESS NOTE Progress Note for Day of: Progress Note Date: 01/14/23 Chief Complaint Chief Complaint: moderate abdominal pain with distention , no BM yet . s/p TC . no nausea or vomiting .. CBC, BUN/Creat normal .. Past Medical Family Social History Past Med/Fam/Surg Hx: No changes since H&P Allergies: Allergies No Known Allergies Allergy (Verified 01/11/23 15:16) Review Of Systems ROS: No change since H&P Vital Signs Vital Signs: Vital Signs Temperature 98.1 F Temperature 98.2 F Pulse Rate [Left] 100 Pulse Rate [Left] 104 Respiratory Rate 15 Respiratory Rate 18 Respiratory Rate 18 Respiratory Rate 18 Respiratory Rate 18 Blood Pressure [Left Arm] 137/75 Blood Pressure [Left Arm] 142/79 O2 Sat by Pulse Oximetry 98 O2 Sat by Pulse Oximetry 99 01/14/23 07:00 01/14/23 08:44 01/14/23 08:00 Temperature 98.1 F Temperature Source Oral Pulse Rate [Left] 100 H Pulse Rhythm [Apical] Regular Pulse Strength [Apical] Normal Respiratory Rate 15 18 Respiratory Depth Normal Respiratory Effort Normal Non-Labored Normal Non-Labored Respiratory Pattern Normal O2 Sat by Pulse Oximetry 98 Oxygen Delivery Method Nasal Cannula Nasal Cannula Oxygen Flow Rate 2 3 Blood Pressure [Left Arm] 137/75 Blood Pressure Mean [Left Arm] 95 Blood Pressure Source [Left Arm] Automatic Cuff Physical Exam Oriented: Normal Respiratory: Normal Cardiovascular: Normal GI:Auscultation: Other (moderate distention and diffuse tenderness , BS+but hypoactive ..) Mood Description: Calm Speech Pattern: Clear and Appropriate Laboratory and Diagnostics Result Diagrams: 01/14/23 05:50 01/14/23 05:50 Labs: Laboratory WBC 7.7 X10^3/uL (3.6-10.0) 01/14/23 05:50 RBC 4.47 X10^6/uL (4.7-6.0) L 01/14/23 05:50 Hgb 14.0 g/dL (13.5-18.0) 01/14/23 05:50 Hct 38.3 % (42.0-54.0) L 01/14/23 05:50 MCV 85.7 fL (80.0-100.0) 01/14/23 05:50 MCH 31.3 pg (27.0-34.0) 01/14/23 05:50 MCHC 36.5 g/dL (33.0-35.0) H 01/14/23 05:50 RDW 13.0 % (11.6-16.5) 01/14/23 05:50 Plt Count 365 X10^3/uL (150.0-450.0) 01/14/23 05:50 Plt Count Comment Adequate (ADEQUATE) 01/14/23 05:50 MPV 7.4 fL (7.4-11.0) 01/14/23 05:50 Neut % (Auto) 67.9 % (42.0-75.0) 01/14/23 05:50 Lymph % (Auto) 18.3 % (21.0-51.0) L 01/14/23 05:50 [place] % (Auto) 12.1 % (0.0-13.0) 01/14/23 05:50 Eos % (Auto) 1.4 % (0.9-2.9) 01/14/23 05:50 Baso % (Auto) 0.3 % (0.2-1.0) 01/14/23 05:50 Neut # (Auto) 5.2 x10^3/uL (2.2-4.8) H 01/14/23 05:50 Lymph # (Auto) 1.4 X10^3/uL (1.3-2.9) 01/14/23 05:50 [place] # (Auto) 0.9 x10^3/uL (0.3-0.8) H 01/14/23 05:50 Eos # (Auto) 0.1 x10^3/uL (0.0-0.2) 01/14/23 05:50 Baso # (Auto) 0.0 X10^3/uL (0.0-0.1) 01/14/23 05:50 Absolute Nucleated RBC 0.1 /100WBC 01/14/23 05:50 Total Counted 100 01/14/23 05:50 Neutrophils % (Manual) 45 % (39-76) 01/14/23 05:50 Band Neutrophils % 12 % (0-10) H 01/14/23 05:50 Lymphocytes % (Manual) 19 % (13-43) 01/14/23 05:50 Monocytes % (Manual) 19 % (4-9) H 01/14/23 05:50 Eosinophils % (Manual) 3 % (0-6) 01/14/23 05:50 Metamyelocytes % 1 01/14/23 05:50 Promyelocytes % 1 01/14/23 05:50 Plt Morphology Comment Normal (NORMAL) 01/14/23 05:50 RBC Morphology Normal (NORMAL) 01/14/23 05:50 Sodium 129 mmol/L (136-145) L 01/14/23 05:50 Corrected Sodium 130 mmol/L (136-145) L 01/14/23 05:50 Potassium 4.0 mmol/L (3.5-5.1) 01/14/23 05:50 Chloride 92 mmol/L (98-107) L 01/14/23 05:50 Carbon Dioxide 30.1 mmol/L (21-32) 01/14/23 05:50 BUN 14 mg/dL (7-18) 01/14/23 05:50 Creatinine 0.75 mg/dL (0.70-1.30) 01/14/23 05:50 Est GFR (MDRD) Af Amer > 60 (>60) 01/14/23 05:50 Est GFR (MDRD) Non-Af > 60 (>60) 01/14/23 05:50 Glucose 137 mg/dL (65-99) H 01/14/23 05:50 Calcium 7.3 mg/dL (8.5-10.1) L 01/14/23 05:50 Corrected Calcium 8.7 mg/dL (8.5-10.1) 01/14/23 05:50 Magnesium 2.3 mg/dL (2.0-2.9) 01/12/23 05:33 Total Bilirubin 1.20 mg/dL (0.2-1.0) H 01/14/23 05:50 AST 11 Units/L (15-37) L 01/14/23 05:50 ALT 12 Units/L (12-78) 01/14/23 05:50 Alkaline Phosphatase 42 Units/L (46-116) L 01/14/23 05:50 Total Protein 5.7 g/dL (6.4-8.2) L 01/14/23 05:50 Albumin 2.3 g/dL (3.4-5.0) L 01/14/23 05:50 Globulin 3.4 g/dL (2.5-4.5) 01/14/23 05:50 Albumin/Globulin Ratio 0.7 Ratio (1.1-2.1) L 01/14/23 05:50 Lipase 41 Units/L (73-393) L 01/11/23 15:45 Specimen Type Clean catch urine 01/12/23 00:57 Urine Color Dark yellow (YELLOW) 01/12/23 00:57 Urine Appearance Clear (CLEAR) 01/12/23 00:57 Urine pH 6.5 (5.0 - 8.0) 01/12/23 00:57 Ur Specific [place] 1.015 (1.000-1.030) 01/12/23 00:57 Urine Protein 2+ (NEGATIVE) 01/12/23 00:57 Urine Glucose (UA) Negative (NEGATIVE) 01/12/23 00:57 Urine Ketones 2+ (NEGATIVE) 01/12/23 00:57 Urine Blood 1+ (NEGATIVE) 01/12/23 00:57 Urine Nitrite Negative (NEGATIVE) 01/12/23 00:57 Urine Bilirubin Negative (NEGATIVE) 01/12/23 00:57 Urine Urobilinogen Normal (NORMAL) 01/12/23 00:57 Ur Leukocyte Esterase Negative (NEGATIVE) 01/12/23 00:57 Urine RBC 0-2 /HPF (0-3) 01/12/23 00:57 Urine WBC None seen /HPF (0-5) 01/12/23 00:57 Ur Squamous Epith Cells Rare /HPF (NEGATIVE) 01/12/23 00:57 Urine Bacteria Negative /HPF (NEGATIVE) 01/12/23 00:57 Ur Culture Indicated? No/not indicated 01/12/23 00:57 Assessment and Plan 1: s/p transverse colostomy for obstructing lesion of the sigmoid colon. same NGT , IVF , OOB ,and PO care .. 2: bowel obstruction . same as above . d/w Pt in details .. Problem Patient Problems: Patient Problems (Updated 01/11/23 @ 18:35 by Amaury Reyes) Intestinal obstruction (Acute) K56.609 Hyponatremia (Acute) E87.1
[2023-01-14] MEDS: D5 1/2 NS 1,000 ML 1,000 ML IV SCH (13:07)
[2023-01-14] MEDS: NS 1,000 ML IV 1,000 ML IV SCH (20:38)
[2023-01-15] MEDS: NS 1,000 ML IV 1,000 ML IV SCH ×5 (00:32→19:54)
[2023-01-15] MEDS: DILAUDID INJ IVP PRN ×5 (00:37→23:43)
[2023-01-15] MEDS: ZOSYN VIAL 3.375 GRAMS 3.375 G in NS 100 ML IV 100 ML IV SCH ×3 (03:17→19:54)
[2023-01-15 06:29] LABS: BASOPHILS % (AUTO) 0.2 % (0.2-1.0); EOSINOPHILS # (AUTO) 0.2 x10^3/uL (0.0-0.2); EOSINOPHILS % (AUTO) 1.7 % (0.9-2.9); HEMATOCRIT 35.2 % (42.0-54.0); HEMOGLOBIN 12.6 g/dL (13.5-18.0); LYMPHOCYTES # (AUTO) 1.5 X10^3/uL (1.3-2.9); LYMPHOCYTES % (AUTO) 14.2 % (21.0-51.0); MEAN CORPUSCULAR HEMOGLOBIN 30.9 pg (27.0-34.0); MEAN CORPUSCULAR HGB CONC 35.7 g/dL (33.0-35.0); MEAN CORPUSCULAR VOLUME 86.5 fL (80.0-100.0); MEAN PLATELET VOLUME 7.6 fL (7.4-11.0); MONOCYTES # (AUTO) 1.4 x10^3/uL (0.3-0.8); MONOCYTES % (AUTO) 13.1 % (0.0-13.0); NEUTROPHILS # (AUTO) 7.5 x10^3/uL (2.2-4.8); NEUTROPHILS % (AUTO) 70.8 % (42.0-75.0); PLATELET COUNT 356 X10^3/uL (150.0-450.0); RED BLOOD COUNT 4.07 X10^6/uL (4.7-6.0); RED CELL DISTRIBUTION WIDTH 13.1 % (11.6-16.5); WHITE BLOOD COUNT 10.6 X10^3/uL (3.6-10.0)
[2023-01-15 06:47] LABS: ALANINE AMINOTRANSFERASE 13 Units/L (12-78); ALBUMIN 2.1 g/dL (3.4-5.0); ALKALINE PHOSPHATASE 45 Units/L (46-116); ASPARTATE AMINO TRANSFERASE 16 Units/L (15-37); BLOOD UREA NITROGEN 15 mg/dL (7-18); CALCIUM 7.5 mg/dL (8.5-10.1); CARBON DIOXIDE 31.8 mmol/L (21-32); CHLORIDE 91 mmol/L (98-107); GLUCOSE 89 mg/dL (65-99); POTASSIUM 3.7 mmol/L (3.5-5.1); SODIUM 129 mmol/L (136-145); TOTAL PROTEIN 5.7 g/dL (6.4-8.2); eGFR NON BLACK RACES > 60 (>60)
[2023-01-15] MEDS: LOVENOX INJ 40 MG SYR SC SCH (08:09)
[2023-01-15] MEDS: PROTONIX INJ 40 MG VIAL IVP SCH ×2 (08:09→20:00)
--- NOTE | 2023-01-15 08:36 | DR.PROGNOT ---
HOSPITAL PROGRESS NOTE Progress Note for Day of: Progress Note Date: 01/15/23 Chief Complaint Chief Complaint: moderate abdominal pain with distention , no BM yet . s/p TC . no nausea or vomiting .. CBC, BUN/Creat normal .. Past Medical Family Social History Past Med/Fam/Surg Hx: No changes since H&P Allergies: Allergies No Known Allergies Allergy (Verified 01/11/23 15:16) Review Of Systems ROS: No change since H&P Vital Signs Vital Signs: Vital Signs Temperature 98.4 F Pulse Rate [Left] 91 Respiratory Rate 20 Respiratory Rate 18 Respiratory Rate 20 Blood Pressure [Left Arm] 144/78 O2 Sat by Pulse Oximetry 97 01/15/23 05:08 01/15/23 07:00 Pulse Rhythm [Apical] Regular Pulse Strength [Apical] Normal Respiratory Depth Normal Respiratory Effort Normal Non-Labored Respiratory Pattern Normal Weight 163 lb 5.8 oz Physical Exam Oriented: Normal Eyes: Normal Ear: Normal Throat: Normal Respiratory: Normal Cardiovascular: Normal GI:Auscultation: Other (moderate distention and diffuse tenderness , BS+but hypoactive ..) Mood Description: Calm Speech Pattern: Clear and Appropriate Laboratory and Diagnostics Result Diagrams: 01/15/23 05:23 01/15/23 05:23 Labs: Laboratory WBC 10.6 X10^3/uL (3.6-10.0) H 01/15/23 05:23 RBC 4.07 X10^6/uL (4.7-6.0) L 01/15/23 05:23 Hgb 12.6 g/dL (13.5-18.0) L 01/15/23 05:23 Hct 35.2 % (42.0-54.0) L 01/15/23 05:23 MCV 86.5 fL (80.0-100.0) 01/15/23 05:23 MCH 30.9 pg (27.0-34.0) 01/15/23 05:23 MCHC 35.7 g/dL (33.0-35.0) H 01/15/23 05:23 RDW 13.1 % (11.6-16.5) 01/15/23 05:23 Plt Count 356 X10^3/uL (150.0-450.0) 01/15/23 05:23 Plt Count Comment Adequate (ADEQUATE) 01/14/23 05:50 MPV 7.6 fL (7.4-11.0) 01/15/23 05:23 Neut % (Auto) 70.8 % (42.0-75.0) 01/15/23 05:23 Lymph % (Auto) 14.2 % (21.0-51.0) L 01/15/23 05:23 [place] % (Auto) 13.1 % (0.0-13.0) H 01/15/23 05:23 Eos % (Auto) 1.7 % (0.9-2.9) 01/15/23 05:23 Baso % (Auto) 0.2 % (0.2-1.0) 01/15/23 05:23 Neut # (Auto) 7.5 x10^3/uL (2.2-4.8) H 01/15/23 05:23 Lymph # (Auto) 1.5 X10^3/uL (1.3-2.9) 01/15/23 05:23 [place] # (Auto) 1.4 x10^3/uL (0.3-0.8) H 01/15/23 05:23 Eos # (Auto) 0.2 x10^3/uL (0.0-0.2) 01/15/23 05:23 Baso # (Auto) 0.0 X10^3/uL (0.0-0.1) 01/15/23 05:23 Absolute Nucleated RBC 0.0 /100WBC 01/15/23 05:23 Total Counted 100 01/14/23 05:50 Neutrophils % (Manual) 45 % (39-76) 01/14/23 05:50 Band Neutrophils % 12 % (0-10) H 01/14/23 05:50 Lymphocytes % (Manual) 19 % (13-43) 01/14/23 05:50 Monocytes % (Manual) 19 % (4-9) H 01/14/23 05:50 Eosinophils % (Manual) 3 % (0-6) 01/14/23 05:50 Metamyelocytes % 1 01/14/23 05:50 Promyelocytes % 1 01/14/23 05:50 Plt Morphology Comment Normal (NORMAL) 01/14/23 05:50 RBC Morphology Normal (NORMAL) 01/14/23 05:50 Sodium 129 mmol/L (136-145) L 01/15/23 05:23 Corrected Sodium TNP 01/15/23 05:23 Potassium 3.7 mmol/L (3.5-5.1) 01/15/23 05:23 Chloride 91 mmol/L (98-107) L 01/15/23 05:23 Carbon Dioxide 31.8 mmol/L (21-32) 01/15/23 05:23 BUN 15 mg/dL (7-18) 01/15/23 05:23 Creatinine 0.70 mg/dL (0.70-1.30) 01/15/23 05:23 Est GFR (MDRD) Af Amer > 60 (>60) 01/15/23 05:23 Est GFR (MDRD) Non-Af > 60 (>60) 01/15/23 05:23 Glucose 89 mg/dL (65-99) 01/15/23 05:23 Calcium 7.5 mg/dL (8.5-10.1) L 01/15/23 05:23 Corrected Calcium 9.0 mg/dL (8.5-10.1) 01/15/23 05:23 Magnesium 2.0 mg/dL (2.0-2.9) 01/15/23 05:23 Total Bilirubin 1.00 mg/dL (0.2-1.0) 01/15/23 05:23 AST 16 Units/L (15-37) 01/15/23 05:23 ALT 13 Units/L (12-78) 01/15/23 05:23 Alkaline Phosphatase 45 Units/L (46-116) L 01/15/23 05:23 Total Protein 5.7 g/dL (6.4-8.2) L 01/15/23 05:23 Albumin 2.1 g/dL (3.4-5.0) L 01/15/23 05:23 Globulin 3.6 g/dL (2.5-4.5) 01/15/23 05:23 Albumin/Globulin Ratio 0.6 Ratio (1.1-2.1) L 01/15/23 05:23 Lipase 41 Units/L (73-393) L 01/11/23 15:45 Specimen Type Clean catch urine 01/12/23 00:57 Urine Color Dark yellow (YELLOW) 01/12/23 00:57 Urine Appearance Clear (CLEAR) 01/12/23 00:57 Urine pH 6.5 (5.0 - 8.0) 01/12/23 00:57 Ur Specific [place] 1.015 (1.000-1.030) 01/12/23 00:57 Urine Protein 2+ (NEGATIVE) 01/12/23 00:57 Urine Glucose (UA) Negative (NEGATIVE) 01/12/23 00:57 Urine Ketones 2+ (NEGATIVE) 01/12/23 00:57 Urine Blood 1+ (NEGATIVE) 01/12/23 00:57 Urine Nitrite Negative (NEGATIVE) 01/12/23 00:57 Urine Bilirubin Negative (NEGATIVE) 01/12/23 00:57 Urine Urobilinogen Normal (NORMAL) 01/12/23 00:57 Ur Leukocyte Esterase Negative (NEGATIVE) 01/12/23 00:57 Urine RBC 0-2 /HPF (0-3) 01/12/23 00:57 Urine WBC None seen /HPF (0-5) 01/12/23 00:57 Ur Squamous Epith Cells Rare /HPF (NEGATIVE) 01/12/23 00:57 Urine Bacteria Negative /HPF (NEGATIVE) 01/12/23 00:57 Ur Culture Indicated? No/not indicated 01/12/23 00:57 Assessment and Plan 1: s/p transverse colostomy for obstructing lesion of the sigmoid colon. to D/C NGT , start full liquid diet ., OOB ,and PO care .. 2: bowel obstruction . same as above . d/w Pt in details .. Problem Patient Problems: Patient Problems (Updated 01/11/23 @ 18:35 by Amaury Reyes) Intestinal obstruction (Acute) K56.609 Hyponatremia (Acute) E87.1
[2023-01-15] MEDS: K-RIDER 10 MEQ/NS 100 ML 10 MEQ/100 ML BAG IV PRN ×2 (08:51→10:32)
--- NOTE | 2023-01-15 14:44 | RAD ---
KURITAISTORY: POST OP SBOStudy: 2 flat views of the abdomenComparison:January 12, 2023Findings:There remain numerous loops of dilated small bowel measuring up to almost 6 cm.No free air..No abnormal calcifications or abnormal soft tissue shadows. No acute bony abnormalities.IMPRESSION:1.Markedly dilated small bowel. Minimal colonic gas is seen. There does appear to be some stool within the left colon. Obstruction must still be considered however postoperative ileus is also consideration. Correlate clinically.Electronically signed by: KAILYN COPELAND (Jan 15, 2023 14:43:50)
[2023-01-15] MEDS: ZOFRAN INJ 4 MG VIAL IVP PRN ×2 (18:34→23:39)
[2023-01-16] MEDS: NS 1,000 ML IV 1,000 ML IV SCH ×2 (01:54→08:49)
[2023-01-16] MEDS: DILAUDID INJ IVP PRN ×6 (02:02→19:53)
[2023-01-16] MEDS: ZOSYN VIAL 3.375 GRAMS 3.375 G in NS 100 ML IV 100 ML IV SCH ×3 (03:00→20:20)
[2023-01-16 05:36] LABS: BASOPHILS % (AUTO) 0.2 % (0.2-1.0); EOSINOPHILS # (AUTO) 0.1 x10^3/uL (0.0-0.2); EOSINOPHILS % (AUTO) 0.7 % (0.9-2.9); HEMATOCRIT 36.6 % (42.0-54.0); HEMOGLOBIN 13.2 g/dL (13.5-18.0); LYMPHOCYTES # (AUTO) 1.2 X10^3/uL (1.3-2.9); LYMPHOCYTES % (AUTO) 9.6 % (21.0-51.0); MEAN CORPUSCULAR HGB CONC 36.1 g/dL (33.0-35.0); MEAN CORPUSCULAR VOLUME 85.9 fL (80.0-100.0); MEAN PLATELET VOLUME 6.7 fL (7.4-11.0); MONOCYTES # (AUTO) 1.1 x10^3/uL (0.3-0.8); MONOCYTES % (AUTO) 9.3 % (0.0-13.0); NEUTROPHILS # (AUTO) 9.7 x10^3/uL (2.2-4.8); NEUTROPHILS % (AUTO) 80.2 % (42.0-75.0); PLATELET COUNT 488 X10^3/uL (150.0-450.0); RED BLOOD COUNT 4.26 X10^6/uL (4.7-6.0); RED CELL DISTRIBUTION WIDTH 13.3 % (11.6-16.5); WHITE BLOOD COUNT 12.1 X10^3/uL (3.6-10.0)
[2023-01-16 05:51] LABS: ALANINE AMINOTRANSFERASE 16 Units/L (12-78); ALBUMIN 2.4 g/dL (3.4-5.0); ALKALINE PHOSPHATASE 47 Units/L (46-116); ASPARTATE AMINO TRANSFERASE 13 Units/L (15-37); BLOOD UREA NITROGEN 14 mg/dL (7-18); CALCIUM 7.5 mg/dL (8.5-10.1); CARBON DIOXIDE 26.6 mmol/L (21-32); CHLORIDE 91 mmol/L (98-107); COR CA(FOR HYPOALB) 8.8 mg/dL (8.5-10.1); COR NA(FOR HYPERGLY) 128 mmol/L (136-145); GLUCOSE 140 mg/dL (65-99); POTASSIUM 3.8 mmol/L (3.5-5.1); SODIUM 127 mmol/L (136-145); TOTAL PROTEIN 6.2 g/dL (6.4-8.2); eGFR NON BLACK RACES > 60 (>60)
[2023-01-16] MEDS: PROTONIX INJ 40 MG VIAL IVP SCH ×2 (08:30→20:35)
[2023-01-16] MEDS: LOVENOX INJ 40 MG SYR SC SCH (08:31)
[2023-01-16] MEDS: ZOFRAN INJ 4 MG VIAL IVP PRN ×2 (08:31→11:05)
--- NOTE | 2023-01-16 09:24 | DR.PROGNOT ---
HOSPITAL PROGRESS NOTE Progress Note for Day of: Progress Note Date: 01/16/23 Chief Complaint Chief Complaint: vomited last night . feeling better today and the colostomy is functioning well today .. WBC 12.1 .. Na 127. afebrile . Past Medical Family Social History Past Med/Fam/Surg Hx: No changes since H&P Allergies: Allergies No Known Allergies Allergy (Verified 01/11/23 15:16) Review Of Systems ROS: No change since H&P Vital Signs Vital Signs: Vital Signs Temperature 97.4 F Temperature 97.7 F Pulse Rate [Left] 105 Pulse Rate [Left] 106 Respiratory Rate 16 Respiratory Rate 22 Respiratory Rate 20 Respiratory Rate 22 Respiratory Rate 26 Respiratory Rate 18 Respiratory Rate 22 Blood Pressure [Left Arm] 151/96 Blood Pressure [Left Arm] 154/93 O2 Sat by Pulse Oximetry 96 O2 Sat by Pulse Oximetry 96 01/16/23 05:26 01/16/23 05:56 01/16/23 07:00 Temperature Temperature Source Pulse Rate [Left] Pulse Rhythm [Apical] Regular Pulse Strength [Apical] Normal Respiratory Rate 22 20 Respiratory Depth Normal Respiratory Effort Normal Non-Labored Normal Non-Labored Normal Non-Labored Respiratory Pattern Normal O2 Sat by Pulse Oximetry Oxygen Delivery Method Blood Pressure [Left Arm] Blood Pressure Mean [Left Arm] Blood Pressure Source [Left Arm] 01/16/23 08:00 01/16/23 08:31 Temperature 97.4 F L Temperature Source Oral Pulse Rate [Left] 105 H Pulse Rhythm [Apical] Pulse Strength [Apical] Respiratory Rate 22 16 Respiratory Depth Respiratory Effort Normal Non-Labored Respiratory Pattern O2 Sat by Pulse Oximetry 96 Oxygen Delivery Method Room Air Blood Pressure [Left Arm] 151/96 Blood Pressure Mean [Left Arm] 114 Blood Pressure Source [Left Arm] Automatic Cuff Physical Exam Oriented: Normal Eyes: Normal Ear: Normal Throat: Normal Respiratory: Normal Cardiovascular: Normal GI:Auscultation: Other (moderate distention and diffuse tenderness , BS+but hypoactive ..) Mood Description: Calm Speech Pattern: Clear and Appropriate Laboratory and Diagnostics Result Diagrams: 01/16/23 05:18 01/16/23 05:18 Labs: Laboratory WBC 12.1 X10^3/uL (3.6-10.0) H 01/16/23 05:18 RBC 4.26 X10^6/uL (4.7-6.0) L 01/16/23 05:18 Hgb 13.2 g/dL (13.5-18.0) L 01/16/23 05:18 Hct 36.6 % (42.0-54.0) L 01/16/23 05:18 MCV 85.9 fL (80.0-100.0) 01/16/23 05:18 MCH 31.0 pg (27.0-34.0) 01/16/23 05:18 MCHC 36.1 g/dL (33.0-35.0) H 01/16/23 05:18 RDW 13.3 % (11.6-16.5) 01/16/23 05:18 Plt Count 488 X10^3/uL (150.0-450.0) H 01/16/23 05:18 Plt Count Comment Adequate (ADEQUATE) 01/14/23 05:50 MPV 6.7 fL (7.4-11.0) L 01/16/23 05:18 Neut % (Auto) 80.2 % (42.0-75.0) H 01/16/23 05:18 Lymph % (Auto) 9.6 % (21.0-51.0) L 01/16/23 05:18 [place] % (Auto) 9.3 % (0.0-13.0) 01/16/23 05:18 Eos % (Auto) 0.7 % (0.9-2.9) L 01/16/23 05:18 Baso % (Auto) 0.2 % (0.2-1.0) 01/16/23 05:18 Neut # (Auto) 9.7 x10^3/uL (2.2-4.8) H 01/16/23 05:18 Lymph # (Auto) 1.2 X10^3/uL (1.3-2.9) L 01/16/23 05:18 [place] # (Auto) 1.1 x10^3/uL (0.3-0.8) H 01/16/23 05:18 Eos # (Auto) 0.1 x10^3/uL (0.0-0.2) 01/16/23 05:18 Baso # (Auto) 0.0 X10^3/uL (0.0-0.1) 01/16/23 05:18 Absolute Nucleated RBC 0.0 /100WBC 01/16/23 05:18 Total Counted 100 01/14/23 05:50 Neutrophils % (Manual) 45 % (39-76) 01/14/23 05:50 Band Neutrophils % 12 % (0-10) H 01/14/23 05:50 Lymphocytes % (Manual) 19 % (13-43) 01/14/23 05:50 Monocytes % (Manual) 19 % (4-9) H 01/14/23 05:50 Eosinophils % (Manual) 3 % (0-6) 01/14/23 05:50 Metamyelocytes % 1 01/14/23 05:50 Promyelocytes % 1 01/14/23 05:50 Plt Morphology Comment Normal (NORMAL) 01/14/23 05:50 RBC Morphology Normal (NORMAL) 01/14/23 05:50 Sodium 127 mmol/L (136-145) L 01/16/23 05:18 Corrected Sodium 128 mmol/L (136-145) L 01/16/23 05:18 Potassium 3.8 mmol/L (3.5-5.1) 01/16/23 05:18 Chloride 91 mmol/L (98-107) L 01/16/23 05:18 Carbon Dioxide 26.6 mmol/L (21-32) 01/16/23 05:18 BUN 14 mg/dL (7-18) 01/16/23 05:18 Creatinine 0.60 mg/dL (0.70-1.30) L 01/16/23 05:18 Est GFR (MDRD) Af Amer > 60 (>60) 01/16/23 05:18 Est GFR (MDRD) Non-Af > 60 (>60) 01/16/23 05:18 Glucose 140 mg/dL (65-99) H 01/16/23 05:18 Calcium 7.5 mg/dL (8.5-10.1) L 01/16/23 05:18 Corrected Calcium 8.8 mg/dL (8.5-10.1) 01/16/23 05:18 Magnesium 2.0 mg/dL (2.0-2.9) 01/15/23 05:23 Total Bilirubin 0.90 mg/dL (0.2-1.0) 01/16/23 05:18 AST 13 Units/L (15-37) L 01/16/23 05:18 ALT 16 Units/L (12-78) 01/16/23 05:18 Alkaline Phosphatase 47 Units/L (46-116) 01/16/23 05:18 Total Protein 6.2 g/dL (6.4-8.2) L 01/16/23 05:18 Albumin 2.4 g/dL (3.4-5.0) L 01/16/23 05:18 Globulin 3.8 g/dL (2.5-4.5) 01/16/23 05:18 Albumin/Globulin Ratio 0.6 Ratio (1.1-2.1) L 01/16/23 05:18 Lipase 41 Units/L (73-393) L 01/11/23 15:45 Carcinoembryonic Ag 1.0 ng/mL (<=3.8) 01/12/23 05:37 Specimen Type Clean catch urine 01/12/23 00:57 Urine Color Dark yellow (YELLOW) 01/12/23 00:57 Urine Appearance Clear (CLEAR) 01/12/23 00:57 Urine pH 6.5 (5.0 - 8.0) 01/12/23 00:57 Ur Specific [place] 1.015 (1.000-1.030) 01/12/23 00:57 Urine Protein 2+ (NEGATIVE) 01/12/23 00:57 Urine Glucose (UA) Negative (NEGATIVE) 01/12/23 00:57 Urine Ketones 2+ (NEGATIVE) 01/12/23 00:57 Urine Blood 1+ (NEGATIVE) 01/12/23 00:57 Urine Nitrite Negative (NEGATIVE) 01/12/23 00:57 Urine Bilirubin Negative (NEGATIVE) 01/12/23 00:57 Urine Urobilinogen Normal (NORMAL) 01/12/23 00:57 Ur Leukocyte Esterase Negative (NEGATIVE) 01/12/23 00:57 Urine RBC 0-2 /HPF (0-3) 01/12/23 00:57 Urine WBC None seen /HPF (0-5) 01/12/23 00:57 Ur Squamous Epith Cells Rare /HPF (NEGATIVE) 01/12/23 00:57 Urine Bacteria Negative /HPF (NEGATIVE) 01/12/23 00:57 Ur Culture Indicated? No/not indicated 01/12/23 00:57 Assessment and Plan 1: s/p transverse colostomy for obstructing lesion of the sigmoid colon. to start on soft diet OOB ,and PO care .. 2: bowel obstruction . same as above . d/w Pt in details .. Problem Patient Problems: Patient Problems (Updated 01/11/23 @ 18:35 by Amaury Reyes) Intestinal obstruction (Acute) K56.609 Hyponatremia (Acute) E87.1
[2023-01-16] MEDS ORDERED: ZOFRAN INJ 4 MG VIAL IVP ONE (11:01)
--- NOTE | 2023-01-16 13:11 | RAD ---
HISTORYN/V, INTESTINAL OBSTRUCTIONSTUDYKUBCOMPARISONRadiograph 01/15/2023, CT abdomen and pelvis 01/11/2023FINDINGSThere is dilatation of small bowel mostly in the upper and middle abdomen. Overall the findings may have decreased slightly since yesterday.There is no obvious pneumoperitoneum on this supine view.Bones are unremarkable. No significant abnormal calcification.IMPRESSION1. Small-bowel dilatation, slightly improvedElectronically signed by: Harsh Abbasi (Jan 16, 2023 13:10:32)
[2023-01-16] MEDS ORDERED: TORADOL 30 MG VIAL ONE (16:14)
[2023-01-16] MEDS: TORADOL 30 MG VIAL IVP PRN (16:15)
--- NOTE | 2023-01-16 18:21 | DR.CONSULT ---
Consult - Consultation for Day of: Date: 01/16/23 - Chief Complaint Chief Complaint: This is a 42-year-old male who was admitted with bowel obstruction secondary to lesion of the sigmoid colon. Sigmoidoscopy with biopsy revealed obstructing circumferential lesion of the sigmoid colon around 30 cm. The patient was very distended and the distention was involving the large and small bowel. Pt is s/p transverse colostomy for obstructing lesion of the sigmoid. Pt is currently under the care of Dr. Gama. Pt is currently on iv hydration and post operative pain control. Pt has episode of vomiting last pm and has refused to eat due to nausea. Pt is on zofran and ppi therapy. Pt had hyponatremia and currently on gentle Iv hydration. - Past Medical History Past Medical History: denies: Diabetes, Hypertension - Past Surgical History Surgical History: No History - Social History Does patient currently use any type of tobacco product: No Have you used tobacco products in the last 12 months: No Type of Tobacco Use: None Does any household member use tobacco: No Alcohol Use: None Drug Use: None - Medications Home Medications: No Known Allergies Allergy (Verified 01/11/23 15:16) CONTINUE taking the following medications NK 01/11/23 [History] - Review of Systems Constitutional: Malaise Eyes: No Symptoms Reported, Vision Change Respiratory: No Symptoms Reported Gastrointestinal: Nausea, Vomiting Genitourinary: No Symptoms Reported Musculoskeletal: No Symptoms Reported Skin: Wound Neurological: No Symptoms Reported - Physical Exam Vital Signs: Vital Signs Temperature 97.9 F Temperature 97.6 F Pulse Rate [Left] 93 Pulse Rate [Left] 105 Respiratory Rate 20 Respiratory Rate 20 Respiratory Rate 20 Respiratory Rate 18 Respiratory Rate 18 Respiratory Rate 18 Respiratory Rate 20 Respiratory Rate 16 Respiratory Rate 22 Blood Pressure [Left Arm] 153/97 Blood Pressure [Left Arm] 154/98 O2 Sat by Pulse Oximetry 97 O2 Sat by Pulse Oximetry 96 01/16/23 15:28 01/16/23 16:03 01/16/23 16:15 Temperature Temperature Source Pulse Rate [Left] Respiratory Rate 18 18 Respiratory Effort Normal Non-Labored Normal Non-Labored O2 Sat by Pulse Oximetry Oxygen Delivery Method Room Air FIO2% 21 Blood Pressure [Left Arm] Blood Pressure Mean [Left Arm] Blood Pressure Source [Left Arm] 01/16/23 16:00 01/16/23 16:15 01/16/23 16:33 Temperature 97.9 F Temperature Source Oral Pulse Rate [Left] 93 H Respiratory Rate 18 20 20 Respiratory Effort Normal Non-Labored Normal Non-Labored O2 Sat by Pulse Oximetry 97 Oxygen Delivery Method Room Air FIO2% Blood Pressure [Left Arm] 153/97 Blood Pressure Mean [Left Arm] 115 Blood Pressure Source [Left Arm] Automatic Cuff 01/16/23 16:45 Temperature Temperature Source Pulse Rate [Left] Respiratory Rate 20 Respiratory Effort Normal Non-Labored O2 Sat by Pulse Oximetry Oxygen Delivery Method FIO2% Blood Pressure [Left Arm] Blood Pressure Mean [Left Arm] Blood Pressure Source [Left Arm] Oriented: Normal Eyes: Normal Ear: Normal Nose: Normal Throat: Dry Respiratory: RLL Diminished, LLL Diminished Cardiovascular: Normal. negative: Murmur, Edema Auscultation: Bowel Sounds: Normal Tenderness: Diffuse Skin: Wound Musculoskeletal: Normal Psychiatric: Anxiety Affect: Anxious Speech Pattern: Clear, Appropriate - Plan Plan: CONTINUE POST OPERATIVE PLAN OF CARE AND CONTROL. GENTLE IV HYDRATION, I&OS. REPEAT AM CBC, CMP - Allergies Allergies/Adverse Reactions: Allergies Allergy/AdvReac Type Severity Reaction Status Date / Time No Known Allergies Allergy Verified 01/11/23 15:16
[2023-01-17] MEDS: DILAUDID INJ IVP PRN (00:50)
[2023-01-17] MEDS: ZOFRAN INJ 4 MG VIAL IVP PRN (00:55)
[2023-01-17] MEDS: NS 1,000 ML IV 1,000 ML IV SCH ×4 (03:08→23:34)
[2023-01-17] MEDS: ZOSYN VIAL 3.375 GRAMS 3.375 G in NS 100 ML IV 100 ML IV SCH ×3 (03:09→21:37)
[2023-01-17 06:06] LABS: BASOPHILS % (AUTO) 0.3 % (0.2-1.0); EOSINOPHILS # (AUTO) 0.1 x10^3/uL (0.0-0.2); EOSINOPHILS % (AUTO) 0.9 % (0.9-2.9); HEMATOCRIT 35.2 % (42.0-54.0); HEMOGLOBIN 12.7 g/dL (13.5-18.0); LYMPHOCYTES # (AUTO) 1.1 X10^3/uL (1.3-2.9); LYMPHOCYTES % (AUTO) 12.9 % (21.0-51.0); MEAN CORPUSCULAR HGB CONC 35.9 g/dL (33.0-35.0); MEAN CORPUSCULAR VOLUME 86.2 fL (80.0-100.0); MEAN PLATELET VOLUME 6.9 fL (7.4-11.0); MONOCYTES # (AUTO) 0.6 x10^3/uL (0.3-0.8); MONOCYTES % (AUTO) 6.7 % (0.0-13.0); NEUTROPHILS % (AUTO) 79.2 % (42.0-75.0); PLATELET COUNT 479 X10^3/uL (150.0-450.0); RED BLOOD COUNT 4.09 X10^6/uL (4.7-6.0); RED CELL DISTRIBUTION WIDTH 13.1 % (11.6-16.5); WHITE BLOOD COUNT 8.8 X10^3/uL (3.6-10.0)
[2023-01-17 06:18] LABS: ALANINE AMINOTRANSFERASE 18 Units/L (12-78); ALBUMIN 2.4 g/dL (3.4-5.0); ALKALINE PHOSPHATASE 44 Units/L (46-116); ASPARTATE AMINO TRANSFERASE 20 Units/L (15-37); BLOOD UREA NITROGEN 16 mg/dL (7-18); CALCIUM 7.4 mg/dL (8.5-10.1); CARBON DIOXIDE 26.3 mmol/L (21-32); CHLORIDE 90 mmol/L (98-107); COR CA(FOR HYPOALB) 8.7 mg/dL (8.5-10.1); GLUCOSE 104 mg/dL (65-99); SODIUM 127 mmol/L (136-145); eGFR NON BLACK RACES > 60 (>60)
[2023-01-17] MEDS: LOVENOX INJ 40 MG SYR SC SCH (09:13)
[2023-01-17] MEDS: TORADOL 30 MG VIAL IVP PRN (09:14)
[2023-01-17] MEDS: PROTONIX INJ 40 MG VIAL IVP SCH ×2 (09:14→21:37)
--- NOTE | 2023-01-17 09:34 | DR.PROGNOT ---
HOSPITAL PROGRESS NOTE Progress Note for Day of: Progress Note Date: 01/17/23 Chief Complaint Chief Complaint: feeling better today and the colostomy is functioning well . still distended but tolerating diet afebrile . Past Medical Family Social History Past Med/Fam/Surg Hx: No changes since H&P Allergies: Allergies No Known Allergies Allergy (Verified 01/11/23 15:16) Review Of Systems ROS: No change since H&P Vital Signs Vital Signs: Vital Signs Temperature 99.7 F Pulse Rate [Left] 92 Respiratory Rate 15 Respiratory Rate 18 Blood Pressure [Left Arm] 150/80 O2 Sat by Pulse Oximetry 95 01/17/23 05:58 01/17/23 08:30 01/17/23 09:14 Respiratory Rate 15 Respiratory Effort Normal Non-Labored Oxygen Delivery Method Room Air Weight 177 lb 0.499 oz Physical Exam Oriented: Normal Eyes: Normal Ear: Normal Nose: Normal Throat: Dry Respiratory: Normal Cardiovascular: Normal; negative Murmur or Edema GI:Auscultation: Normal GI: Tenderness: Diffuse and Other (moderate distention , BS hypoactive .. ) Skin: Wound Musculoskeletal: Normal Psychiatric: Anxiety Mood Description: Calm Affect: Anxious Speech Pattern: Clear and Appropriate Laboratory and Diagnostics Result Diagrams: 01/17/23 05:06 01/17/23 05:06 Labs: Laboratory WBC 8.8 X10^3/uL (3.6-10.0) 01/17/23 05:06 RBC 4.09 X10^6/uL (4.7-6.0) L 01/17/23 05:06 Hgb 12.7 g/dL (13.5-18.0) L 01/17/23 05:06 Hct 35.2 % (42.0-54.0) L 01/17/23 05:06 MCV 86.2 fL (80.0-100.0) 01/17/23 05:06 MCH 31.0 pg (27.0-34.0) 01/17/23 05:06 MCHC 35.9 g/dL (33.0-35.0) H 01/17/23 05:06 RDW 13.1 % (11.6-16.5) 01/17/23 05:06 Plt Count 479 X10^3/uL (150.0-450.0) H 01/17/23 05:06 Plt Count Comment Adequate (ADEQUATE) 01/14/23 05:50 MPV 6.9 fL (7.4-11.0) L 01/17/23 05:06 Neut % (Auto) 79.2 % (42.0-75.0) H 01/17/23 05:06 Lymph % (Auto) 12.9 % (21.0-51.0) L 01/17/23 05:06 [place] % (Auto) 6.7 % (0.0-13.0) 01/17/23 05:06 Eos % (Auto) 0.9 % (0.9-2.9) 01/17/23 05:06 Baso % (Auto) 0.3 % (0.2-1.0) 01/17/23 05:06 Neut # (Auto) 7.0 x10^3/uL (2.2-4.8) H 01/17/23 05:06 Lymph # (Auto) 1.1 X10^3/uL (1.3-2.9) L 01/17/23 05:06 [place] # (Auto) 0.6 x10^3/uL (0.3-0.8) 01/17/23 05:06 Eos # (Auto) 0.1 x10^3/uL (0.0-0.2) 01/17/23 05:06 Baso # (Auto) 0.0 X10^3/uL (0.0-0.1) 01/17/23 05:06 Absolute Nucleated RBC 0.2 /100WBC 01/17/23 05:06 Total Counted 100 01/14/23 05:50 Neutrophils % (Manual) 45 % (39-76) 01/14/23 05:50 Band Neutrophils % 12 % (0-10) H 01/14/23 05:50 Lymphocytes % (Manual) 19 % (13-43) 01/14/23 05:50 Monocytes % (Manual) 19 % (4-9) H 01/14/23 05:50 Eosinophils % (Manual) 3 % (0-6) 01/14/23 05:50 Metamyelocytes % 1 01/14/23 05:50 Promyelocytes % 1 01/14/23 05:50 Plt Morphology Comment Normal (NORMAL) 01/14/23 05:50 RBC Morphology Normal (NORMAL) 01/14/23 05:50 Sodium 127 mmol/L (136-145) L 01/17/23 05:06 Corrected Sodium TNP 01/17/23 05:06 Potassium 4.0 mmol/L (3.5-5.1) 01/17/23 05:06 Chloride 90 mmol/L (98-107) L 01/17/23 05:06 Carbon Dioxide 26.3 mmol/L (21-32) 01/17/23 05:06 BUN 16 mg/dL (7-18) 01/17/23 05:06 Creatinine 0.60 mg/dL (0.70-1.30) L 01/17/23 05:06 Est GFR (MDRD) Af Amer > 60 (>60) 01/17/23 05:06 Est GFR (MDRD) Non-Af > 60 (>60) 01/17/23 05:06 Glucose 104 mg/dL (65-99) H 01/17/23 05:06 Calcium 7.4 mg/dL (8.5-10.1) L 01/17/23 05:06 Corrected Calcium 8.7 mg/dL (8.5-10.1) 01/17/23 05:06 Magnesium 2.0 mg/dL (2.0-2.9) 01/15/23 05:23 Total Bilirubin 0.90 mg/dL (0.2-1.0) 01/17/23 05:06 AST 20 Units/L (15-37) 01/17/23 05:06 ALT 18 Units/L (12-78) 01/17/23 05:06 Alkaline Phosphatase 44 Units/L (46-116) L 01/17/23 05:06 Total Protein 6.0 g/dL (6.4-8.2) L 01/17/23 05:06 Albumin 2.4 g/dL (3.4-5.0) L 01/17/23 05:06 Globulin 3.6 g/dL (2.5-4.5) 01/17/23 05:06 Albumin/Globulin Ratio 0.7 Ratio (1.1-2.1) L 01/17/23 05:06 Lipase 41 Units/L (73-393) L 01/11/23 15:45 Carcinoembryonic Ag 1.0 ng/mL (<=3.8) 01/12/23 05:37 Specimen Type Clean catch urine 01/12/23 00:57 Urine Color Dark yellow (YELLOW) 01/12/23 00:57 Urine Appearance Clear (CLEAR) 01/12/23 00:57 Urine pH 6.5 (5.0 - 8.0) 01/12/23 00:57 Ur Specific [place] 1.015 (1.000-1.030) 01/12/23 00:57 Urine Protein 2+ (NEGATIVE) 01/12/23 00:57 Urine Glucose (UA) Negative (NEGATIVE) 01/12/23 00:57 Urine Ketones 2+ (NEGATIVE) 01/12/23 00:57 Urine Blood 1+ (NEGATIVE) 01/12/23 00:57 Urine Nitrite Negative (NEGATIVE) 01/12/23 00:57 Urine Bilirubin Negative (NEGATIVE) 01/12/23 00:57 Urine Urobilinogen Normal (NORMAL) 01/12/23 00:57 Ur Leukocyte Esterase Negative (NEGATIVE) 01/12/23 00:57 Urine RBC 0-2 /HPF (0-3) 01/12/23 00:57 Urine WBC None seen /HPF (0-5) 01/12/23 00:57 Ur Squamous Epith Cells Rare /HPF (NEGATIVE) 01/12/23 00:57 Urine Bacteria Negative /HPF (NEGATIVE) 01/12/23 00:57 Ur Culture Indicated? No/not indicated 01/12/23 00:57 Assessment and Plan 1: s/p transverse colostomy for obstructing lesion of the sigmoid colon. to start on soft diet OOB ,and PO care .. 2: bowel obstruction , ileus same as above . d/w Pt in details .. Problem Patient Problems: Patient Problems (Updated 01/11/23 @ 18:35 by Amaury Reyes) Intestinal obstruction (Acute) K56.609 Hyponatremia (Acute) E87.1
--- NOTE | 2023-01-17 18:29 | DR.CONSULT ---
Consult - Consultation for Day of: Date: 01/17/23 - Chief Complaint Chief Complaint: This is a 42-year-old male who was admitted with bowel obstruction secondary to lesion of the sigmoid colon. Sigmoidoscopy with biopsy revealed obstructing circumferential lesion of the sigmoid colon around 30 cm. The patient was very distended and the distention was involving the large and small bowel. Pt is s/p transverse colostomy for obstructing lesion of the sigmoid. Pt is currently under the care of Dr. Gama. Pt is currently on iv hydration and post operative pain control. Pt is on IV zosyn, with improved WBC today. Pt has been afebrile and improving po intake. - Past Medical History Past Medical History: denies: Diabetes, Hypertension - Past Surgical History Surgical History: No History - Social History Does patient currently use any type of tobacco product: No Have you used tobacco products in the last 12 months: No Type of Tobacco Use: None Does any household member use tobacco: No Alcohol Use: None Drug Use: None - Medications Home Medications: No Known Allergies Allergy (Verified 01/11/23 15:16) CONTINUE taking the following medications NK 01/11/23 [History] - Review of Systems Constitutional: Weakness Eyes: No Symptoms Reported ENT: No Symptoms Reported Respiratory: No Symptoms Reported Cardiovascular: No Symptoms Reported Gastrointestinal: Nausea, Abdominal Pain Genitourinary: No Symptoms Reported Musculoskeletal: No Symptoms Reported Skin: Wound Neurological: No Symptoms Reported - Physical Exam Vital Signs: Vital Signs Temperature 98.3 F Temperature 97.8 F Pulse Rate [Left] 90 Pulse Rate [Left] 90 Respiratory Rate 20 Respiratory Rate 18 Blood Pressure [Left Arm] 152/89 Blood Pressure [Left Arm] 138/76 O2 Sat by Pulse Oximetry 97 O2 Sat by Pulse Oximetry 97 01/17/23 16:00 Temperature 98.3 F Temperature Source Oral Pulse Rate [Left] 90 Respiratory Rate 20 O2 Sat by Pulse Oximetry 97 Oxygen Delivery Method Room Air Blood Pressure [Left Arm] 152/89 Blood Pressure Mean [Left Arm] 110 Blood Pressure Source [Left Arm] Automatic Cuff Oriented: Normal Eyes: Normal Ear: Normal Nose: Normal Throat: Dry Respiratory: RLL Diminished, LLL Diminished Cardiovascular: Tachycardia. negative: Murmur, Edema : Normal Auscultation: Bowel Sounds: Decreased Tenderness: Diffuse Skin: Wound Musculoskeletal: Normal Psychiatric: Depression Affect: Depressed Speech Pattern: Clear, Appropriate - Plan Plan: CONTINUE POST OPERATIVE PLAN OF CARE AND CONTROL. IV ATBX THERAPY, GENTLE IV HYDRATION, I&OS. REPEAT AM CBC, CMP - Allergies Allergies/Adverse Reactions: Allergies Allergy/AdvReac Type Severity Reaction Status Date / Time No Known Allergies Allergy Verified 01/11/23 15:16
[2023-01-17] MEDS: RESTORIL CAP 15 MG PO PRN (21:30)
[2023-01-18] MEDS: ZOSYN VIAL 3.375 GRAMS 3.375 G in NS 100 ML IV 100 ML IV SCH ×3 (05:00→22:15)
[2023-01-18 05:23] LABS: BASOPHILS % (AUTO) 0.4 % (0.2-1.0); EOSINOPHILS # (AUTO) 0.2 x10^3/uL (0.0-0.2); EOSINOPHILS % (AUTO) 1.9 % (0.9-2.9); HEMATOCRIT 34.2 % (42.0-54.0); HEMOGLOBIN 12.3 g/dL (13.5-18.0); LYMPHOCYTES # (AUTO) 1.6 X10^3/uL (1.3-2.9); MEAN CORPUSCULAR HEMOGLOBIN 30.9 pg (27.0-34.0); MEAN CORPUSCULAR VOLUME 85.9 fL (80.0-100.0); MEAN PLATELET VOLUME 6.7 fL (7.4-11.0); MONOCYTES # (AUTO) 0.7 x10^3/uL (0.3-0.8); MONOCYTES % (AUTO) 7.7 % (0.0-13.0); NEUTROPHILS # (AUTO) 6.7 x10^3/uL (2.2-4.8); PLATELET COUNT 449 X10^3/uL (150.0-450.0); RED BLOOD COUNT 3.99 X10^6/uL (4.7-6.0); RED CELL DISTRIBUTION WIDTH 12.9 % (11.6-16.5); WHITE BLOOD COUNT 9.2 X10^3/uL (3.6-10.0)
[2023-01-18 05:25] LABS: ALANINE AMINOTRANSFERASE 15 Units/L (12-78); ALBUMIN 2.3 g/dL (3.4-5.0); ALKALINE PHOSPHATASE 46 Units/L (46-116); ASPARTATE AMINO TRANSFERASE 20 Units/L (15-37); BLOOD UREA NITROGEN 8 mg/dL (7-18); CALCIUM 7.3 mg/dL (8.5-10.1); CARBON DIOXIDE 29.7 mmol/L (21-32); CHLORIDE 95 mmol/L (98-107); COR CA(FOR HYPOALB) 8.7 mg/dL (8.5-10.1); CREATININE 0.61 mg/dL (0.70-1.30); GLUCOSE 95 mg/dL (65-99); POTASSIUM 3.4 mmol/L (3.5-5.1); SODIUM 133 mmol/L (136-145); TOTAL PROTEIN 5.7 g/dL (6.4-8.2); eGFR NON BLACK RACES > 60 (>60)
[2023-01-18] MEDS ORDERED: PHARMACY CONSULT - POTASSIUM & MAGNESIUM XX SCH (06:00)
[2023-01-18] MEDS ORDERED: K-DUR TAB 20 MEQ PO ONE (06:00)
[2023-01-18] MEDS: NS 1,000 ML IV 1,000 ML IV SCH ×4 (07:07→17:19)
[2023-01-18] MEDS ORDERED: K-DUR TAB 20 MEQ PO SCH (09:00)
[2023-01-18] MEDS: PROTONIX INJ 40 MG VIAL IVP SCH ×2 (09:39→22:13)
[2023-01-18] MEDS: LOVENOX INJ 40 MG SYR SC SCH (09:39)
--- NOTE | 2023-01-18 09:50 | DR.PROGNOT ---
HOSPITAL PROGRESS NOTE Progress Note for Day of: Progress Note Date: 01/18/23 Chief Complaint Chief Complaint: feeling better today , colostomy is functioning well . still with moderate distention but tolerating diet afebrile . Past Medical Family Social History Past Med/Fam/Surg Hx: No changes since H&P Allergies: Allergies No Known Allergies Allergy (Verified 01/11/23 15:16) Review Of Systems ROS: No change since H&P Vital Signs Vital Signs: Vital Signs Temperature 97.9 F Pulse Rate [Left] 99 Respiratory Rate 20 Blood Pressure [Left Arm] 131/79 O2 Sat by Pulse Oximetry 98 Physical Exam Oriented: Normal Eyes: Normal Ear: Normal Nose: Normal Throat: Dry Respiratory: Normal Cardiovascular: Tachycardia; negative Murmur or Edema : Normal GI:Auscultation: Decreased GI: Tenderness: Diffuse Skin: Wound Musculoskeletal: Normal Psychiatric: Depression Mood Description: Calm Affect: Depressed Speech Pattern: Clear and Appropriate Laboratory and Diagnostics Result Diagrams: 01/18/23 04:30 01/18/23 04:30 Labs: Laboratory WBC 9.2 X10^3/uL (3.6-10.0) 01/18/23 04:30 RBC 3.99 X10^6/uL (4.7-6.0) L 01/18/23 04:30 Hgb 12.3 g/dL (13.5-18.0) L 01/18/23 04:30 Hct 34.2 % (42.0-54.0) L 01/18/23 04:30 MCV 85.9 fL (80.0-100.0) 01/18/23 04:30 MCH 30.9 pg (27.0-34.0) 01/18/23 04:30 MCHC 36.0 g/dL (33.0-35.0) H 01/18/23 04:30 RDW 12.9 % (11.6-16.5) 01/18/23 04:30 Plt Count 449 X10^3/uL (150.0-450.0) 01/18/23 04:30 Plt Count Comment Adequate (ADEQUATE) 01/14/23 05:50 MPV 6.7 fL (7.4-11.0) L 01/18/23 04:30 Neut % (Auto) 73.0 % (42.0-75.0) 01/18/23 04:30 Lymph % (Auto) 17.0 % (21.0-51.0) L 01/18/23 04:30 [place] % (Auto) 7.7 % (0.0-13.0) 01/18/23 04:30 Eos % (Auto) 1.9 % (0.9-2.9) 01/18/23 04:30 Baso % (Auto) 0.4 % (0.2-1.0) 01/18/23 04:30 Neut # (Auto) 6.7 x10^3/uL (2.2-4.8) H 01/18/23 04:30 Lymph # (Auto) 1.6 X10^3/uL (1.3-2.9) 01/18/23 04:30 [place] # (Auto) 0.7 x10^3/uL (0.3-0.8) 01/18/23 04:30 Eos # (Auto) 0.2 x10^3/uL (0.0-0.2) 01/18/23 04:30 Baso # (Auto) 0.0 X10^3/uL (0.0-0.1) 01/18/23 04:30 Absolute Nucleated RBC 0.0 /100WBC 01/18/23 04:30 Total Counted 100 01/14/23 05:50 Neutrophils % (Manual) 45 % (39-76) 01/14/23 05:50 Band Neutrophils % 12 % (0-10) H 01/14/23 05:50 Lymphocytes % (Manual) 19 % (13-43) 01/14/23 05:50 Monocytes % (Manual) 19 % (4-9) H 01/14/23 05:50 Eosinophils % (Manual) 3 % (0-6) 01/14/23 05:50 Metamyelocytes % 1 01/14/23 05:50 Promyelocytes % 1 01/14/23 05:50 Plt Morphology Comment Normal (NORMAL) 01/14/23 05:50 RBC Morphology Normal (NORMAL) 01/14/23 05:50 Sodium 133 mmol/L (136-145) L 01/18/23 04:30 Corrected Sodium TNP 01/18/23 04:30 Potassium 3.4 mmol/L (3.5-5.1) L 01/18/23 04:30 Chloride 95 mmol/L (98-107) L 01/18/23 04:30 Carbon Dioxide 29.7 mmol/L (21-32) 01/18/23 04:30 BUN 8 mg/dL (7-18) 01/18/23 04:30 Creatinine 0.61 mg/dL (0.70-1.30) L 01/18/23 04:30 Est GFR (MDRD) Af Amer > 60 (>60) 01/18/23 04:30 Est GFR (MDRD) Non-Af > 60 (>60) 01/18/23 04:30 Glucose 95 mg/dL (65-99) 01/18/23 04:30 Calcium 7.3 mg/dL (8.5-10.1) L 01/18/23 04:30 Corrected Calcium 8.7 mg/dL (8.5-10.1) 01/18/23 04:30 Magnesium 2.0 mg/dL (2.0-2.9) 01/15/23 05:23 Total Bilirubin 0.60 mg/dL (0.2-1.0) 01/18/23 04:30 AST 20 Units/L (15-37) 01/18/23 04:30 ALT 15 Units/L (12-78) 01/18/23 04:30 Alkaline Phosphatase 46 Units/L (46-116) 01/18/23 04:30 Total Protein 5.7 g/dL (6.4-8.2) L 01/18/23 04:30 Albumin 2.3 g/dL (3.4-5.0) L 01/18/23 04:30 Globulin 3.4 g/dL (2.5-4.5) 01/18/23 04:30 Albumin/Globulin Ratio 0.7 Ratio (1.1-2.1) L 01/18/23 04:30 Lipase 41 Units/L (73-393) L 01/11/23 15:45 Carcinoembryonic Ag 1.0 ng/mL (<=3.8) 01/12/23 05:37 Specimen Type Clean catch urine 01/12/23 00:57 Urine Color Dark yellow (YELLOW) 01/12/23 00:57 Urine Appearance Clear (CLEAR) 01/12/23 00:57 Urine pH 6.5 (5.0 - 8.0) 01/12/23 00:57 Ur Specific [place] 1.015 (1.000-1.030) 01/12/23 00:57 Urine Protein 2+ (NEGATIVE) 01/12/23 00:57 Urine Glucose (UA) Negative (NEGATIVE) 01/12/23 00:57 Urine Ketones 2+ (NEGATIVE) 01/12/23 00:57 Urine Blood 1+ (NEGATIVE) 01/12/23 00:57 Urine Nitrite Negative (NEGATIVE) 01/12/23 00:57 Urine Bilirubin Negative (NEGATIVE) 01/12/23 00:57 Urine Urobilinogen Normal (NORMAL) 01/12/23 00:57 Ur Leukocyte Esterase Negative (NEGATIVE) 01/12/23 00:57 Urine RBC 0-2 /HPF (0-3) 01/12/23 00:57 Urine WBC None seen /HPF (0-5) 01/12/23 00:57 Ur Squamous Epith Cells Rare /HPF (NEGATIVE) 01/12/23 00:57 Urine Bacteria Negative /HPF (NEGATIVE) 01/12/23 00:57 Ur Culture Indicated? No/not indicated 01/12/23 00:57 Tissue Pathology See comment. 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 on soft diet OOB ,and PO care .. 2: bowel obstruction ileus same as above . d/w Pt in details .. Problem Patient Problems: Patient Problems (Updated 01/11/23 @ 18:35 by Aamury Reyes) Intestinal obstruction (Acute) K56.609 Hyponatremia (Acute) E87.1
[2023-01-18] MEDS: RESTORIL CAP 15 MG PO PRN (22:15)
[2023-01-19] MEDS: DILAUDID INJ IVP PRN (00:50)
[2023-01-19] MEDS: ZOSYN VIAL 3.375 GRAMS 3.375 G in NS 100 ML IV 100 ML IV SCH ×3 (04:40→21:12)
[2023-01-19] MEDS: NS 1,000 ML IV 1,000 ML IV SCH ×2 (04:41→12:02)
[2023-01-19 04:59] LABS: BASOPHILS % (AUTO) 0.4 % (0.2-1.0); EOSINOPHILS # (AUTO) 0.2 x10^3/uL (0.0-0.2); EOSINOPHILS % (AUTO) 1.5 % (0.9-2.9); HEMATOCRIT 31.7 % (42.0-54.0); HEMOGLOBIN 11.7 g/dL (13.5-18.0); LYMPHOCYTES # (AUTO) 1.8 X10^3/uL (1.3-2.9); LYMPHOCYTES % (AUTO) 17.7 % (21.0-51.0); MEAN CORPUSCULAR HEMOGLOBIN 31.4 pg (27.0-34.0); MEAN CORPUSCULAR VOLUME 84.9 fL (80.0-100.0); MEAN PLATELET VOLUME 6.6 fL (7.4-11.0); MONOCYTES # (AUTO) 0.6 x10^3/uL (0.3-0.8); MONOCYTES % (AUTO) 5.9 % (0.0-13.0); NEUTROPHILS # (AUTO) 7.8 x10^3/uL (2.2-4.8); NEUTROPHILS % (AUTO) 74.5 % (42.0-75.0); PLATELET COUNT 411 X10^3/uL (150.0-450.0); RED BLOOD COUNT 3.74 X10^6/uL (4.7-6.0); RED CELL DISTRIBUTION WIDTH 13.2 % (11.6-16.5); WHITE BLOOD COUNT 10.4 X10^3/uL (3.6-10.0)
[2023-01-19 05:18] LABS: CHLORIDE 99 mmol/L (98-107); SODIUM 133 mmol/L (136-145)
[2023-01-19 05:21] LABS: POTASSIUM 2.9 mmol/L (3.5-5.1)
[2023-01-19 05:34] LABS: ALANINE AMINOTRANSFERASE 18 Units/L (12-78); ALBUMIN 2.1 g/dL (3.4-5.0); ALKALINE PHOSPHATASE 41 Units/L (46-116); ASPARTATE AMINO TRANSFERASE 20 Units/L (15-37); BLOOD UREA NITROGEN 4 mg/dL (7-18); CALCIUM 6.8 mg/dL (8.5-10.1); CARBON DIOXIDE 28.4 mmol/L (21-32); COR CA(FOR HYPOALB) 8.3 mg/dL (8.5-10.1); COR NA(FOR HYPERGLY) 133 mmol/L (136-145); CREATININE 0.49 mg/dL (0.70-1.30); GLUCOSE 115 mg/dL (65-99); TOTAL PROTEIN 4.9 g/dL (6.4-8.2); eGFR NON BLACK RACES > 60 (>60)
[2023-01-19] MEDS ORDERED: PHARMACY CONSULT - POTASSIUM & MAGNESIUM XX SCH (06:00)
[2023-01-19] MEDS: NS + KCL 20 MEQ/L 1,000 ML IV SCH ×3 (07:56→22:04)
[2023-01-19] MEDS: K-DUR TAB 20 MEQ PO SCH ×3 (07:56→12:18)
[2023-01-19] MEDS: PROTONIX INJ 40 MG VIAL IVP SCH ×2 (09:58→21:12)
[2023-01-19] MEDS: LOVENOX INJ 40 MG SYR SC SCH (09:58)
--- NOTE | 2023-01-19 10:02 | DR.PROGNOT ---
HOSPITAL PROGRESS NOTE Progress Note for Day of: Progress Note Date: 01/19/23 Chief Complaint Chief Complaint: feeling better today , colostomy is functioning well . still with moderate distention but tolerating diet K 2.9 afebrile . Past Medical Family Social History Past Med/Fam/Surg Hx: No changes since H&P Allergies: Allergies No Known Allergies Allergy (Verified 01/11/23 15:16) Review Of Systems ROS: No change since H&P Vital Signs Vital Signs: Vital Signs Temperature 98.0 F Pulse Rate [Left] 84 Respiratory Rate 18 Blood Pressure [Left Arm] 114/63 O2 Sat by Pulse Oximetry 97 01/19/23 06:00 01/19/23 09:17 Oxygen Delivery Method Room Air FIO2% Weight 165 lb 12.602 oz Physical Exam Oriented: Normal Eyes: Normal Ear: Normal Nose: Normal Throat: Dry Respiratory: Normal Cardiovascular: Tachycardia; negative Murmur or Edema : Normal GI:Auscultation: Decreased GI: Tenderness: Diffuse Skin: Wound Musculoskeletal: Normal Psychiatric: Depression Mood Description: Calm Affect: Depressed Speech Pattern: Clear and Appropriate Laboratory and Diagnostics Result Diagrams: 01/19/23 04:10 01/19/23 04:10 Labs: Laboratory WBC 10.4 X10^3/uL (3.6-10.0) H 01/19/23 04:10 RBC 3.74 X10^6/uL (4.7-6.0) L 01/19/23 04:10 Hgb 11.7 g/dL (13.5-18.0) L 01/19/23 04:10 Hct 31.7 % (42.0-54.0) L 01/19/23 04:10 MCV 84.9 fL (80.0-100.0) 01/19/23 04:10 MCH 31.4 pg (27.0-34.0) 01/19/23 04:10 MCHC 37.0 g/dL (33.0-35.0) H 01/19/23 04:10 RDW 13.2 % (11.6-16.5) 01/19/23 04:10 Plt Count 411 X10^3/uL (150.0-450.0) 01/19/23 04:10 Plt Count Comment Adequate (ADEQUATE) 01/14/23 05:50 MPV 6.6 fL (7.4-11.0) L 01/19/23 04:10 Neut % (Auto) 74.5 % (42.0-75.0) 01/19/23 04:10 Lymph % (Auto) 17.7 % (21.0-51.0) L 01/19/23 04:10 [place] % (Auto) 5.9 % (0.0-13.0) 01/19/23 04:10 Eos % (Auto) 1.5 % (0.9-2.9) 01/19/23 04:10 Baso % (Auto) 0.4 % (0.2-1.0) 01/19/23 04:10 Neut # (Auto) 7.8 x10^3/uL (2.2-4.8) H 01/19/23 04:10 Lymph # (Auto) 1.8 X10^3/uL (1.3-2.9) 01/19/23 04:10 [place] # (Auto) 0.6 x10^3/uL (0.3-0.8) 01/19/23 04:10 Eos # (Auto) 0.2 x10^3/uL (0.0-0.2) 01/19/23 04:10 Baso # (Auto) 0.0 X10^3/uL (0.0-0.1) 01/19/23 04:10 Absolute Nucleated RBC 0.1 /100WBC 01/19/23 04:10 Total Counted 100 01/14/23 05:50 Neutrophils % (Manual) 45 % (39-76) 01/14/23 05:50 Band Neutrophils % 12 % (0-10) H 01/14/23 05:50 Lymphocytes % (Manual) 19 % (13-43) 01/14/23 05:50 Monocytes % (Manual) 19 % (4-9) H 01/14/23 05:50 Eosinophils % (Manual) 3 % (0-6) 01/14/23 05:50 Metamyelocytes % 1 01/14/23 05:50 Promyelocytes % 1 01/14/23 05:50 Plt Morphology Comment Normal (NORMAL) 01/14/23 05:50 RBC Morphology Normal (NORMAL) 01/14/23 05:50 Sodium 133 mmol/L (136-145) L 01/19/23 04:10 Corrected Sodium 133 mmol/L (136-145) L 01/19/23 04:10 Potassium 2.9 mmol/L (3.5-5.1) L* 01/19/23 04:10 Chloride 99 mmol/L (98-107) 01/19/23 04:10 Carbon Dioxide 28.4 mmol/L (21-32) 01/19/23 04:10 BUN 4 mg/dL (7-18) L 01/19/23 04:10 Creatinine 0.49 mg/dL (0.70-1.30) L 01/19/23 04:10 Est GFR (MDRD) Af Amer > 60 (>60) 01/19/23 04:10 Est GFR (MDRD) Non-Af > 60 (>60) 01/19/23 04:10 Glucose 115 mg/dL (65-99) H 01/19/23 04:10 Calcium 6.8 mg/dL (8.5-10.1) L 01/19/23 04:10 Corrected Calcium 8.3 mg/dL (8.5-10.1) L 01/19/23 04:10 Magnesium 2.0 mg/dL (2.0-2.9) 01/15/23 05:23 Total Bilirubin 0.30 mg/dL (0.2-1.0) 01/19/23 04:10 AST 20 Units/L (15-37) 01/19/23 04:10 ALT 18 Units/L (12-78) 01/19/23 04:10 Alkaline Phosphatase 41 Units/L (46-116) L 01/19/23 04:10 Total Protein 4.9 g/dL (6.4-8.2) L 01/19/23 04:10 Albumin 2.1 g/dL (3.4-5.0) L 01/19/23 04:10 Globulin 2.8 g/dL (2.5-4.5) 01/19/23 04:10 Albumin/Globulin Ratio 0.8 Ratio (1.1-2.1) L 01/19/23 04:10 Lipase 41 Units/L (73-393) L 01/11/23 15:45 Carcinoembryonic Ag 1.0 ng/mL (<=3.8) 01/12/23 05:37 Specimen Type Clean catch urine 01/12/23 00:57 Urine Color Dark yellow (YELLOW) 01/12/23 00:57 Urine Appearance Clear (CLEAR) 01/12/23 00:57 Urine pH 6.5 (5.0 - 8.0) 01/12/23 00:57 Ur Specific [place] 1.015 (1.000-1.030) 01/12/23 00:57 Urine Protein 2+ (NEGATIVE) 01/12/23 00:57 Urine Glucose (UA) Negative (NEGATIVE) 01/12/23 00:57 Urine Ketones 2+ (NEGATIVE) 01/12/23 00:57 Urine Blood 1+ (NEGATIVE) 01/12/23 00:57 Urine Nitrite Negative (NEGATIVE) 01/12/23 00:57 Urine Bilirubin Negative (NEGATIVE) 01/12/23 00:57 Urine Urobilinogen Normal (NORMAL) 01/12/23 00:57 Ur Leukocyte Esterase Negative (NEGATIVE) 01/12/23 00:57 Urine RBC 0-2 /HPF (0-3) 01/12/23 00:57 Urine WBC None seen /HPF (0-5) 01/12/23 00:57 Ur Squamous Epith Cells Rare /HPF (NEGATIVE) 01/12/23 00:57 Urine Bacteria Negative /HPF (NEGATIVE) 01/12/23 00:57 Ur Culture Indicated? No/not indicated 01/12/23 00:57 Tissue Pathology See comment. 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 on regular diet OOB ,and PO care .. 2: subsiding bowel obstruction same as above . d/w Pt in details .. stoma education . d/c on saturday .. Problem Patient Problems: Patient Problems (Updated 01/11/23 @ 18:35 by Amaury Reyes) Intestinal obstruction (Acute) K56.609 Hyponatremia (Acute) E87.1
[2023-01-19] MEDS: TORADOL 30 MG VIAL IVP PRN (16:40)
[2023-01-19] MEDS: RESTORIL CAP 15 MG PO PRN (21:12)
[2023-01-20] MEDS: DILAUDID INJ IVP PRN ×2 (00:28→16:07)
[2023-01-20] MEDS: NS + KCL 20 MEQ/L 1,000 ML IV SCH ×4 (02:48→22:21)
[2023-01-20] MEDS: ZOSYN VIAL 3.375 GRAMS 3.375 G in NS 100 ML IV 100 ML IV SCH ×3 (03:13→19:14)
[2023-01-20 04:48] LABS: BASOPHILS # (AUTO) 0.1 X10^3/uL (0.0-0.1); BASOPHILS % (AUTO) 0.6 % (0.2-1.0); EOSINOPHILS # (AUTO) 0.2 x10^3/uL (0.0-0.2); EOSINOPHILS % (AUTO) 2.2 % (0.9-2.9); HEMATOCRIT 32.2 % (42.0-54.0); HEMOGLOBIN 11.8 g/dL (13.5-18.0); LYMPHOCYTES # (AUTO) 1.7 X10^3/uL (1.3-2.9); LYMPHOCYTES % (AUTO) 16.1 % (21.0-51.0); MEAN CORPUSCULAR HEMOGLOBIN 31.4 pg (27.0-34.0); MEAN CORPUSCULAR HGB CONC 36.5 g/dL (33.0-35.0); MEAN CORPUSCULAR VOLUME 85.9 fL (80.0-100.0); MEAN PLATELET VOLUME 6.5 fL (7.4-11.0); MONOCYTES # (AUTO) 0.5 x10^3/uL (0.3-0.8); NEUTROPHILS # (AUTO) 8.2 x10^3/uL (2.2-4.8); NEUTROPHILS % (AUTO) 76.1 % (42.0-75.0); PLATELET COUNT 393 X10^3/uL (150.0-450.0); RED BLOOD COUNT 3.75 X10^6/uL (4.7-6.0); RED CELL DISTRIBUTION WIDTH 13.4 % (11.6-16.5); WHITE BLOOD COUNT 10.7 X10^3/uL (3.6-10.0)
[2023-01-20 05:07] LABS: BLOOD UREA NITROGEN 6 mg/dL (7-18); CALCIUM 6.9 mg/dL (8.5-10.1); CARBON DIOXIDE 25.4 mmol/L (21-32); CHLORIDE 105 mmol/L (98-107); CREATININE 0.54 mg/dL (0.70-1.30); GLUCOSE 110 mg/dL (65-99); eGFR NON BLACK RACES > 60 (>60)
[2023-01-20 05:11] LABS: SODIUM 140 mmol/L (136-145)
[2023-01-20 05:24] LABS: ALANINE AMINOTRANSFERASE 19 Units/L (12-78); ALKALINE PHOSPHATASE 40 Units/L (46-116); ASPARTATE AMINO TRANSFERASE 17 Units/L (15-37); COR CA(FOR HYPOALB) 8.5 mg/dL (8.5-10.1); MAGNESIUM 1.6 mg/dL (2.0-2.9); TOTAL PROTEIN 5.2 g/dL (6.4-8.2)
[2023-01-20] MEDS ORDERED: PHARMACY CONSULT - POTASSIUM & MAGNESIUM XX SCH (06:00)
[2023-01-20] MEDS ORDERED: K-DUR TAB 20 MEQ PO ONE ×2 (08:00→12:00)
[2023-01-20] MEDS ORDERED: K-DUR TAB 20 MEQ PO SCH (09:00)
[2023-01-20] MEDS: PROTONIX INJ 40 MG VIAL IVP SCH ×2 (09:29→20:12)
[2023-01-20] MEDS: LOVENOX INJ 40 MG SYR SC SCH (09:29)
[2023-01-20] MEDS: MAGNESIUM SULFATE 1 GRAM/100 mL PREMIX 1 G/100 ML BAG IV SCH ×2 (09:29→12:00)
[2023-01-20] MEDS: K-DUR TAB 20 MEQ PO SCH (09:29)
--- NOTE | 2023-01-20 09:52 | DR.PROGNOT ---
HOSPITAL PROGRESS NOTE Progress Note for Day of: Progress Note Date: 01/20/23 Chief Complaint Chief Complaint: colostomy is functioning well . still with moderate distention but tolerating diet K 3.0 afebrile . Past Medical Family Social History Past Med/Fam/Surg Hx: No changes since H&P Allergies: Allergies No Known Allergies Allergy (Verified 01/11/23 15:16) Review Of Systems ROS: No change since H&P Vital Signs Vital Signs: Vital Signs Temperature 99.4 F Temperature 97.7 F Pulse Rate [Left] 95 Pulse Rate [Left] 83 Respiratory Rate 20 Respiratory Rate 16 Blood Pressure [Left Arm] 124/73 Blood Pressure [Left Arm] 116/66 O2 Sat by Pulse Oximetry 99 O2 Sat by Pulse Oximetry 99 01/20/23 06:00 01/20/23 09:18 01/20/23 08:00 Temperature 99.4 F Temperature Source Oral Pulse Rate [Left] 95 H Pulse Rhythm [Apical] Pulse Strength [Apical] Respiratory Rate 20 Respiratory Depth Respiratory Effort Respiratory Pattern O2 Sat by Pulse Oximetry 99 Oxygen Delivery Method Room Air Room Air Blood Pressure [Left Arm] 124/73 Blood Pressure Mean [Left Arm] 90 Blood Pressure Source [Left Arm] Automatic Cuff Weight 164 lb 0.383 oz 01/20/23 07:00 Temperature Temperature Source Pulse Rate [Left] Pulse Rhythm [Apical] Regular Pulse Strength [Apical] Normal Respiratory Rate Respiratory Depth Normal Respiratory Effort Normal Non-Labored Respiratory Pattern Normal O2 Sat by Pulse Oximetry Oxygen Delivery Method Room Air Blood Pressure [Left Arm] Blood Pressure Mean [Left Arm] Blood Pressure Source [Left Arm] Weight Physical Exam Oriented: Normal Eyes: Normal Ear: Normal Nose: Normal Throat: Dry Respiratory: Normal Cardiovascular: Tachycardia and Edema; negative Murmur : Normal GI:Auscultation: Decreased GI: Tenderness: Diffuse Skin: Wound Musculoskeletal: Normal Psychiatric: Depression Mood Description: Calm Affect: Depressed Speech Pattern: Clear and Appropriate Laboratory and Diagnostics Result Diagrams: 01/20/23 04:05 01/20/23 04:05 Labs: Laboratory WBC 10.7 X10^3/uL (3.6-10.0) H 01/20/23 04:05 RBC 3.75 X10^6/uL (4.7-6.0) L 01/20/23 04:05 Hgb 11.8 g/dL (13.5-18.0) L 01/20/23 04:05 Hct 32.2 % (42.0-54.0) L 01/20/23 04:05 MCV 85.9 fL (80.0-100.0) 01/20/23 04:05 MCH 31.4 pg (27.0-34.0) 01/20/23 04:05 MCHC 36.5 g/dL (33.0-35.0) H 01/20/23 04:05 RDW 13.4 % (11.6-16.5) 01/20/23 04:05 Plt Count 393 X10^3/uL (150.0-450.0) 01/20/23 04:05 Plt Count Comment Adequate (ADEQUATE) 01/14/23 05:50 MPV 6.5 fL (7.4-11.0) L 01/20/23 04:05 Neut % (Auto) 76.1 % (42.0-75.0) H 01/20/23 04:05 Lymph % (Auto) 16.1 % (21.0-51.0) L 01/20/23 04:05 [place] % (Auto) 5.0 % (0.0-13.0) 01/20/23 04:05 Eos % (Auto) 2.2 % (0.9-2.9) 01/20/23 04:05 Baso % (Auto) 0.6 % (0.2-1.0) 01/20/23 04:05 Neut # (Auto) 8.2 x10^3/uL (2.2-4.8) H 01/20/23 04:05 Lymph # (Auto) 1.7 X10^3/uL (1.3-2.9) 01/20/23 04:05 [place] # (Auto) 0.5 x10^3/uL (0.3-0.8) 01/20/23 04:05 Eos # (Auto) 0.2 x10^3/uL (0.0-0.2) 01/20/23 04:05 Baso # (Auto) 0.1 X10^3/uL (0.0-0.1) 01/20/23 04:05 Absolute Nucleated RBC 0.0 /100WBC 01/20/23 04:05 Total Counted 100 06/19/23 05:50 Neutrophils % (Manual) 45 % (39-76) 01/14/23 05:50 Band Neutrophils % 12 % (0-10) H 01/14/23 05:50 Lymphocytes % (Manual) 19 % (13-43) 01/14/23 05:50 Monocytes % (Manual) 19 % (4-9) H 01/14/23 05:50 Eosinophils % (Manual) 3 % (0-6) 01/14/23 05:50 Metamyelocytes % 1 01/14/23 05:50 Promyelocytes % 1 01/14/23 05:50 Plt Morphology Comment Normal (NORMAL) 01/14/23 05:50 RBC Morphology Normal (NORMAL) 01/14/23 05:50 Sodium 140 mmol/L (136-145) 01/20/23 04:05 Corrected Sodium TNP 01/20/23 04:05 Potassium 3.0 mmol/L (3.5-5.1) L 01/20/23 04:05 Chloride 105 mmol/L (98-107) 01/20/23 04:05 Carbon Dioxide 25.4 mmol/L (21-32) 01/20/23 04:05 BUN 6 mg/dL (7-18) L 01/20/23 04:05 Creatinine 0.54 mg/dL (0.70-1.30) L 01/20/23 04:05 Est GFR (MDRD) Af Amer > 60 (>60) 01/20/23 04:05 Est GFR (MDRD) Non-Af > 60 (>60) 01/20/23 04:05 Glucose 110 mg/dL (65-99) H 01/20/23 04:05 Calcium 6.9 mg/dL (8.5-10.1) L 01/20/23 04:05 Corrected Calcium 8.5 mg/dL (8.5-10.1) 01/20/23 04:05 Magnesium 1.6 mg/dL (2.0-2.9) L 01/20/23 04:05 Total Bilirubin 0.30 mg/dL (0.2-1.0) 01/20/23 04:05 AST 17 Units/L (15-37) 01/20/23 04:05 ALT 19 Units/L (12-78) 01/20/23 04:05 Alkaline Phosphatase 40 Units/L (46-116) L 01/20/23 04:05 Total Protein 5.2 g/dL (6.4-8.2) L 01/20/23 04:05 Albumin 2.0 g/dL (3.4-5.0) L 01/20/23 04:05 Globulin 3.2 g/dL (2.5-4.5) 01/20/23 04:05 Albumin/Globulin Ratio 0.6 Ratio (1.1-2.1) L 01/20/23 04:05 Lipase 41 Units/L (73-393) L 01/11/23 15:45 Carcinoembryonic Ag 1.0 ng/mL (<=3.8) 01/12/23 05:37 Specimen Type Clean catch urine 01/12/23 00:57 Urine Color Dark yellow (YELLOW) 01/12/23 00:57 Urine Appearance Clear (CLEAR) 01/12/23 00:57 Urine pH 6.5 (5.0 - 8.0) 01/12/23 00:57 Ur Specific [place] 1.015 (1.000-1.030) 01/12/23 00:57 Urine Protein 2+ (NEGATIVE) 01/12/23 00:57 Urine Glucose (UA) Negative (NEGATIVE) 01/12/23 00:57 Urine Ketones 2+ (NEGATIVE) 01/12/23 00:57 Urine Blood 1+ (NEGATIVE) 01/12/23 00:57 Urine Nitrite Negative (NEGATIVE) 01/12/23 00:57 Urine Bilirubin Negative (NEGATIVE) 01/12/23 00:57 Urine Urobilinogen Normal (NORMAL) 01/12/23 00:57 Ur Leukocyte Esterase Negative (NEGATIVE) 01/12/23 00:57 Urine RBC 0-2 /HPF (0-3) 01/12/23 00:57 Urine WBC None seen /HPF (0-5) 01/12/23 00:57 Ur Squamous Epith Cells Rare /HPF (NEGATIVE) 01/12/23 00:57 Urine Bacteria Negative /HPF (NEGATIVE) 01/12/23 00:57 Ur Culture Indicated? No/not indicated 01/12/23 00:57 Tissue Pathology See comment. 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 on regular diet OOB ,and PO care .. 2: subsiding bowel obstruction same as above . d/w Pt in details .. stoma education . d/c on saturday .. Problem Patient Problems: Patient Problems (Updated 01/11/23 @ 18:35 by Amaury Reyes) Intestinal obstruction (Acute) K56.609 Hyponatremia (Acute) E87.1
[2023-01-20] MEDS: RESTORIL CAP 15 MG PO PRN (20:16)
[2023-01-21] MEDS: DILAUDID INJ IVP PRN ×2 (00:03→05:10)
[2023-01-21] MEDS: ZOSYN VIAL 3.375 GRAMS 3.375 G in NS 100 ML IV 100 ML IV SCH (03:18)
[2023-01-21 05:11] VITALS: RESP 20
[2023-01-21 05:23] LABS: BASOPHILS % (AUTO) 0.3 % (0.2-1.0); EOSINOPHILS # (AUTO) 0.2 x10^3/uL (0.0-0.2); EOSINOPHILS % (AUTO) 1.5 % (0.9-2.9); HEMATOCRIT 32.6 % (42.0-54.0); LYMPHOCYTES # (AUTO) 1.7 X10^3/uL (1.3-2.9); LYMPHOCYTES % (AUTO) 16.9 % (21.0-51.0); MEAN CORPUSCULAR HEMOGLOBIN 31.7 pg (27.0-34.0); MEAN CORPUSCULAR HGB CONC 36.8 g/dL (33.0-35.0); MEAN CORPUSCULAR VOLUME 86.2 fL (80.0-100.0); MEAN PLATELET VOLUME 6.4 fL (7.4-11.0); MONOCYTES # (AUTO) 0.5 x10^3/uL (0.3-0.8); MONOCYTES % (AUTO) 5.4 % (0.0-13.0); NEUTROPHILS # (AUTO) 7.6 x10^3/uL (2.2-4.8); NEUTROPHILS % (AUTO) 75.9 % (42.0-75.0); PLATELET COUNT 432 X10^3/uL (150.0-450.0); RED BLOOD COUNT 3.78 X10^6/uL (4.7-6.0); RED CELL DISTRIBUTION WIDTH 13.2 % (11.6-16.5); WHITE BLOOD COUNT 9.9 X10^3/uL (3.6-10.0)
[2023-01-21 05:38] LABS: ALANINE AMINOTRANSFERASE 20 Units/L (12-78); ALBUMIN 2.2 g/dL (3.4-5.0); ALKALINE PHOSPHATASE 45 Units/L (46-116); ASPARTATE AMINO TRANSFERASE 18 Units/L (15-37); BLOOD UREA NITROGEN 5 mg/dL (7-18); CARBON DIOXIDE 27.5 mmol/L (21-32); CHLORIDE 101 mmol/L (98-107); COR CA(FOR HYPOALB) 8.4 mg/dL (8.5-10.1); CREATININE 0.69 mg/dL (0.70-1.30); GLUCOSE 105 mg/dL (65-99); MAGNESIUM 1.8 mg/dL (2.0-2.9); POTASSIUM 3.1 mmol/L (3.5-5.1); SODIUM 136 mmol/L (136-145); TOTAL PROTEIN 5.8 g/dL (6.4-8.2); eGFR NON BLACK RACES > 60 (>60)
[2023-01-21] MEDS ORDERED: PHARMACY CONSULT - POTASSIUM & MAGNESIUM XX SCH (06:00)
[2023-01-21] MEDS: NS + KCL 20 MEQ/L 1,000 ML IV SCH (06:20)
[2023-01-21] MEDS ORDERED: K-DUR TAB 20 MEQ PO ONE (06:30)
[2023-01-21] MEDS: MAGNESIUM SULFATE 1 GRAM/100 mL PREMIX 1 G/100 ML BAG IV SCH ×2 (08:40→10:49)
[2023-01-21] MEDS: PROTONIX INJ 40 MG VIAL IVP SCH (08:41)
[2023-01-21] MEDS: LOVENOX INJ 40 MG SYR SC SCH (08:41)
[2023-01-21] MEDS: K-DUR TAB 20 MEQ PO SCH (08:41)
[2023-01-21 12:29] VITALS: BP 123/69; PULSE 78; TEMP 99.2; O2SAT 99
== END 2023-01-21 13:20 | DRG 330 ==
LOC: EDBD → ER 15:14 → MED/SURG 19:27
PROVIDERS: ADMIT Surgery; ATTEND Surgery
PROC: SIGMOID (2023-01-12 20:35)
DX: R06.02 Shortness of breath; R93.3 Abnormal findings on diagnostic imaging of other parts of digestive tract; C18.9 Malignant neoplasm of colon, unspecified; E87.1 Hypo-osmolality and hyponatremia; K56.690 Other partial intestinal obstruction

== ENCOUNTER 2023-03-25 07:30 | Inpatient (IN) ==
[2023-03-25] MEDS ORDERED: ANCEF VIAL 1 GRAM ONE (08:18)
[2023-03-25] MEDS ORDERED: LR 1,000 ML IV 1,000 ML IV ONE ×3 (08:18→11:28)
[2023-03-25] MEDS ORDERED: NS 100 ML IV 100 ML ONE (08:19)
[2023-03-25 08:44] VITALS: BMI 23.7
[2023-03-25 08:56] LABS: BASOPHILS # (AUTO) 0.1 X10^3/uL (0.0-0.1); BASOPHILS % (AUTO) 0.8 % (0.2-1.0); EOSINOPHILS # (AUTO) 0.2 x10^3/uL (0.0-0.2); EOSINOPHILS % (AUTO) 2.3 % (0.9-2.9); HEMATOCRIT 43.9 % (42.0-54.0); HEMOGLOBIN 15.4 g/dL (13.5-18.0); LYMPHOCYTES # (AUTO) 2.1 X10^3/uL (1.3-2.9); LYMPHOCYTES % (AUTO) 22.6 % (21.0-51.0); MEAN CORPUSCULAR HEMOGLOBIN 30.3 pg (27.0-34.0); MEAN CORPUSCULAR VOLUME 86.6 fL (80.0-100.0); MEAN PLATELET VOLUME 7.5 fL (7.4-11.0); MONOCYTES # (AUTO) 0.5 x10^3/uL (0.3-0.8); MONOCYTES % (AUTO) 5.1 % (0.0-13.0); NEUTROPHILS # (AUTO) 6.5 x10^3/uL (2.2-4.8); NEUTROPHILS % (AUTO) 69.2 % (42.0-75.0); PLATELET COUNT 294 X10^3/uL (150.0-450.0); RED BLOOD COUNT 5.07 X10^6/uL (4.7-6.0); RED CELL DISTRIBUTION WIDTH 13.3 % (11.6-16.5); WHITE BLOOD COUNT 9.4 X10^3/uL (3.6-10.0)
[2023-03-25 09:09] LABS: ALANINE AMINOTRANSFERASE 15 Units/L (12-78); ALBUMIN 4.1 g/dL (3.4-5.0); ALKALINE PHOSPHATASE 87 Units/L (46-116); ASPARTATE AMINO TRANSFERASE 11 Units/L (15-37); BLOOD UREA NITROGEN 9 mg/dL (7-18); CALCIUM 8.8 mg/dL (8.5-10.1); CREATININE 0.86 mg/dL (0.70-1.30); GLUCOSE 114 mg/dL (65-99); TOTAL PROTEIN 7.5 g/dL (6.4-8.2); eGFR NON BLACK RACES > 60 (>60)
[2023-03-25 09:15] LABS: CHLORIDE 105 mmol/L (98-107); COR NA(FOR HYPERGLY) 144 mmol/L (136-145); POTASSIUM 4.6 mmol/L (3.5-5.1); SODIUM 144 mmol/L (136-145)
[2023-03-25] MEDS ORDERED: ZOFRAN INJ 4 MG VIAL ONE (09:35)
[2023-03-25] MEDS ORDERED: ZEMURON 100 MG VIAL ONE (09:35)
[2023-03-25] MEDS ORDERED: PEPCID 20 MG VIAL ONE (09:35)
[2023-03-25] MEDS ORDERED: DIPRIVAN VIAL 20 ML ONE (09:35)
[2023-03-25] MEDS ORDERED: NAROPIN 0.75% EPI ONE (09:35)
[2023-03-25] MEDS ORDERED: PRECEDEX INJ VIAL IVP ONE (09:35)
[2023-03-25] MEDS ORDERED: DECADRON INJ ONE (09:35)
[2023-03-25] MEDS ORDERED: POLYMYXIN B SULFATE ONE (09:37)
[2023-03-25] MEDS ORDERED: FENTANYL VIAL INJ 250 mcg ONE (09:44)
[2023-03-25] MEDS ORDERED: MAGNESIUM SULFATE 50% INJ VIAL ONE (09:44)
[2023-03-25] MEDS ORDERED: VERSED ONE (09:45)
[2023-03-25] MEDS ORDERED: NEO-SYNEPHRINE INJ ONE (10:11)
[2023-03-25] MEDS ORDERED: ROBINUL ONE (10:18)
[2023-03-25] MEDS ORDERED: LEVAQUIN PREMIX IV 500 MG 500 MG/100 ML BAG IV ONE (10:28)
[2023-03-25] MEDS ORDERED: DILAUDID INJ ONE (11:26)
[2023-03-25] MEDS ORDERED: SUPRANE ONE (12:00)
[2023-03-25] MEDS ORDERED: BRIDION ONE (12:09)
[2023-03-25] MEDS: D5 1/2 NS 1,000 ML 1,000 ML IV SCH ×4 (13:56→21:11)
[2023-03-25] MEDS: DILAUDID INJ IVP PRN ×3 (15:52→23:51)
[2023-03-25] MEDS: ANCEF VIAL 1 GRAM IVP SCH ×2 (15:53→21:11)
[2023-03-26] MEDS: D5 1/2 NS 1,000 ML 1,000 ML IV SCH ×4 (04:15→21:11)
[2023-03-26] MEDS: DILAUDID INJ IVP PRN ×5 (04:16→23:49)
[2023-03-26] MEDS: ANCEF VIAL 1 GRAM IVP SCH ×3 (05:22→21:11)
[2023-03-26 06:25] LABS: BASOPHILS % (AUTO) 0.2 % (0.2-1.0); EOSINOPHILS % (AUTO) 0.1 % (0.9-2.9); HEMATOCRIT 39.2 % (42.0-54.0); HEMOGLOBIN 13.9 g/dL (13.5-18.0); LYMPHOCYTES # (AUTO) 2.3 X10^3/uL (1.3-2.9); LYMPHOCYTES % (AUTO) 17.5 % (21.0-51.0); MEAN CORPUSCULAR HGB CONC 35.5 g/dL (33.0-35.0); MEAN CORPUSCULAR VOLUME 84.6 fL (80.0-100.0); MEAN PLATELET VOLUME 7.6 fL (7.4-11.0); MONOCYTES # (AUTO) 0.8 x10^3/uL (0.3-0.8); NEUTROPHILS # (AUTO) 10.1 x10^3/uL (2.2-4.8); NEUTROPHILS % (AUTO) 76.2 % (42.0-75.0); PLATELET COUNT 298 X10^3/uL (150.0-450.0); RED BLOOD COUNT 4.63 X10^6/uL (4.7-6.0); RED CELL DISTRIBUTION WIDTH 13.4 % (11.6-16.5); WHITE BLOOD COUNT 13.3 X10^3/uL (3.6-10.0)
[2023-03-26 06:30] LABS: ALANINE AMINOTRANSFERASE 10 Units/L (12-78); ALBUMIN 3.2 g/dL (3.4-5.0); ALKALINE PHOSPHATASE 63 Units/L (46-116); ASPARTATE AMINO TRANSFERASE 9 Units/L (15-37); BLOOD UREA NITROGEN 5 mg/dL (7-18); CHLORIDE 103 mmol/L (98-107); COR CA(FOR HYPOALB) 8.6 mg/dL (8.5-10.1); COR NA(FOR HYPERGLY) 141 mmol/L (136-145); CREATININE 0.59 mg/dL (0.70-1.30); GLUCOSE 145 mg/dL (65-99); POTASSIUM 3.9 mmol/L (3.5-5.1); SODIUM 140 mmol/L (136-145); TOTAL PROTEIN 6.3 g/dL (6.4-8.2); eGFR NON BLACK RACES > 60 (>60)
[2023-03-26] MEDS: PROTONIX INJ 40 MG VIAL IVP SCH (09:35)
[2023-03-26] MEDS: LOVENOX INJ 40 MG SYR SC SCH (09:35)
[2023-03-27] MEDS: D5 1/2 NS 1,000 ML 1,000 ML IV SCH (04:46)
[2023-03-27] MEDS: ANCEF VIAL 1 GRAM IVP SCH ×4 (05:05→21:28)
[2023-03-27] MEDS: DILAUDID INJ IVP PRN ×5 (05:05→21:29)
[2023-03-27 06:12] LABS: BASOPHILS % (AUTO) 0.4 % (0.2-1.0); EOSINOPHILS # (AUTO) 0.1 x10^3/uL (0.0-0.2); EOSINOPHILS % (AUTO) 1.2 % (0.9-2.9); HEMATOCRIT 38.3 % (42.0-54.0); HEMOGLOBIN 13.5 g/dL (13.5-18.0); LYMPHOCYTES # (AUTO) 1.7 X10^3/uL (1.3-2.9); LYMPHOCYTES % (AUTO) 15.9 % (21.0-51.0); MEAN CORPUSCULAR HEMOGLOBIN 30.2 pg (27.0-34.0); MEAN CORPUSCULAR HGB CONC 35.3 g/dL (33.0-35.0); MEAN CORPUSCULAR VOLUME 85.5 fL (80.0-100.0); MEAN PLATELET VOLUME 7.6 fL (7.4-11.0); MONOCYTES # (AUTO) 0.7 x10^3/uL (0.3-0.8); MONOCYTES % (AUTO) 6.3 % (0.0-13.0); NEUTROPHILS # (AUTO) 8.1 x10^3/uL (2.2-4.8); NEUTROPHILS % (AUTO) 76.2 % (42.0-75.0); PLATELET COUNT 250 X10^3/uL (150.0-450.0); RED BLOOD COUNT 4.47 X10^6/uL (4.7-6.0); WHITE BLOOD COUNT 10.7 X10^3/uL (3.6-10.0)
[2023-03-27 06:13] LABS: ALANINE AMINOTRANSFERASE 12 Units/L (12-78); ALKALINE PHOSPHATASE 59 Units/L (46-116); ASPARTATE AMINO TRANSFERASE 10 Units/L (15-37); BLOOD UREA NITROGEN 3 mg/dL (7-18); CALCIUM 7.8 mg/dL (8.5-10.1); CHLORIDE 101 mmol/L (98-107); COR CA(FOR HYPOALB) 8.6 mg/dL (8.5-10.1); COR NA(FOR HYPERGLY) 139 mmol/L (136-145); GLUCOSE 132 mg/dL (65-99); POTASSIUM 3.3 mmol/L (3.5-5.1); SODIUM 138 mmol/L (136-145); TOTAL PROTEIN 6.2 g/dL (6.4-8.2); eGFR NON BLACK RACES > 60 (>60)
[2023-03-27] MEDS ORDERED: CONSULT PHARMACY - POTASSIUM & MAGNESIUM XX SCH (07:00)
[2023-03-27] MEDS: PROTONIX INJ 40 MG VIAL IVP SCH (08:38)
[2023-03-27] MEDS: LOVENOX INJ 40 MG SYR SC SCH (08:38)
[2023-03-27] MEDS ORDERED: D5 1/2 NS + KCL 40 MEQ/L 1,000 ML IV PRN (09:00)
[2023-03-27] MEDS ORDERED: D5 1/2 NS + KCL 20 MEQ/L 1,000 ML IV SCH (09:00)
[2023-03-27] MEDS ORDERED: K-RIDER 10 MEQ/NS 100 ML 20 MEQ/200 ML BAG IV SCH (09:00)
[2023-03-27] MEDS: D5 1/2 NS + KCL 20 MEQ/L 1,000 ML IV SCH ×4 (09:00→22:05)
--- NOTE | 2023-03-27 10:24 | DR.PROGNOT ---
HOSPITAL PROGRESS NOTE Progress Note for Day of: Progress Note Date: 03/27/23 Chief Complaint Chief Complaint: feeling better , moderate abdominal pain, colostomy is not functioning yet, only mild drainage in the NIELS, White count electrolytes BUN/creatinine are normal.. Febrile Past Medical Family Social History Allergies: Allergies No Known Allergies Allergy (Verified 02/14/23 15:32) Vital Signs Vital Signs: Vital Signs Temperature 98.5 F Temperature 98.9 F Temperature 98.9 F Pulse Rate [Right Brachial] 72 Pulse Rate [Right Brachial] 71 Pulse Rate [Right Brachial] 71 Respiratory Rate 15 Respiratory Rate 20 Respiratory Rate 15 Respiratory Rate 15 Respiratory Rate 20 Respiratory Rate 20 Blood Pressure [Left Arm] 123/74 Blood Pressure [Left Arm] 119/75 Blood Pressure [Left Arm] 119/75 O2 Sat by Pulse Oximetry 100 O2 Sat by Pulse Oximetry 100 O2 Sat by Pulse Oximetry 100 Physical Exam Respiratory: Normal Cardiovascular: Normal GI:Auscultation: Other (Abdomen is soft flat bowel sounds present.) Mood Description: Calm Speech Pattern: Clear and Appropriate Laboratory and Diagnostics 03/27/23 05:27 03/27/23 05:27 Labs: Laboratory WBC 10.7 X10^3/uL (3.6-10.0) H 03/27/23 05:27 RBC 4.47 X10^6/uL (4.7-6.0) L 03/27/23 05:27 Hgb 13.5 g/dL (13.5-18.0) 03/27/23 05:27 Hct 38.3 % (42.0-54.0) L 03/27/23 05:27 MCV 85.5 fL (80.0-100.0) 03/27/23 05:27 MCH 30.2 pg (27.0-34.0) 03/27/23 05:27 MCHC 35.3 g/dL (33.0-35.0) H 03/27/23 05:27 RDW 13.0 % (11.6-16.5) 03/27/23 05:27 Plt Count 250 X10^3/uL (150.0-450.0) 03/27/23 05:27 MPV 7.6 fL (7.4-11.0) 03/27/23 05:27 Neut % (Auto) 76.2 % (42.0-75.0) H 03/27/23 05:27 Lymph % (Auto) 15.9 % (21.0-51.0) L 03/27/23 05:27 [place] % (Auto) 6.3 % (0.0-13.0) 03/27/23 05:27 Eos % (Auto) 1.2 % (0.9-2.9) 03/27/23 05:27 Baso % (Auto) 0.4 % (0.2-1.0) 03/27/23 05:27 Neut # (Auto) 8.1 x10^3/uL (2.2-4.8) H 03/27/23 05:27 Lymph # (Auto) 1.7 X10^3/uL (1.3-2.9) 03/27/23 05:27 [place] # (Auto) 0.7 x10^3/uL (0.3-0.8) 03/27/23 05:27 Eos # (Auto) 0.1 x10^3/uL (0.0-0.2) 03/27/23 05:27 Baso # (Auto) 0.0 X10^3/uL (0.0-0.1) 03/27/23 05:27 Absolute Nucleated RBC 0.0 /100WBC 03/27/23 05:27 Sodium 138 mmol/L (136-145) 03/27/23 05:27 Corrected Sodium 139 mmol/L (136-145) 03/27/23 05:27 Potassium 3.3 mmol/L (3.5-5.1) L 03/27/23 05:27 Chloride 101 mmol/L (98-107) 03/27/23 05:27 Carbon Dioxide 32.0 mmol/L (21-32) 03/27/23 05:27 BUN 3 mg/dL (7-18) L 03/27/23 05:27 Creatinine 0.60 mg/dL (0.70-1.30) L 03/27/23 05:27 Est GFR (MDRD) Af Amer > 60 (>60) 03/27/23 05:27 Est GFR (MDRD) Non-Af > 60 (>60) 03/27/23 05:27 Glucose 132 mg/dL (65-99) H 03/27/23 05:27 Calcium 7.8 mg/dL (8.5-10.1) L 03/27/23 05:27 Corrected Calcium 8.6 mg/dL (8.5-10.1) 03/27/23 05:27 Total Bilirubin 0.80 mg/dL (0.2-1.0) 03/27/23 05:27 AST 10 Units/L (15-37) L 03/27/23 05:27 ALT 12 Units/L (12-78) 03/27/23 05:27 Alkaline Phosphatase 59 Units/L (46-116) 03/27/23 05:27 Total Protein 6.2 g/dL (6.4-8.2) L 03/27/23 05:27 Albumin 3.0 g/dL (3.4-5.0) L 03/27/23 05:27 Globulin 3.2 g/dL (2.5-4.5) 03/27/23 05:27 Albumin/Globulin Ratio 0.9 Ratio (1.1-2.1) L 03/27/23 05:27 Blood Type A POSITIVE 03/25/23 08:50 Antibody Screen Negative 03/25/23 08:44 Assessment and Plan 1: 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 To start on full liquid diet, DC [place] catheter, DVT prophylaxis and DC a ntibiotics
[2023-03-28] MEDS: DILAUDID INJ IVP PRN ×3 (02:14→09:57)
[2023-03-28] MEDS: D5 1/2 NS + KCL 20 MEQ/L 1,000 ML IV SCH ×4 (04:59→21:12)
[2023-03-28] MEDS: ANCEF VIAL 1 GRAM IVP SCH ×3 (05:00→21:05)
[2023-03-28 06:04] LABS: BASOPHILS # (AUTO) 0.1 X10^3/uL (0.0-0.1); BASOPHILS % (AUTO) 1.1 % (0.2-1.0); EOSINOPHILS # (AUTO) 0.2 x10^3/uL (0.0-0.2); EOSINOPHILS % (AUTO) 3.2 % (0.9-2.9); HEMATOCRIT 39.1 % (42.0-54.0); HEMOGLOBIN 13.9 g/dL (13.5-18.0); LYMPHOCYTES % (AUTO) 25.7 % (21.0-51.0); MEAN CORPUSCULAR HEMOGLOBIN 30.4 pg (27.0-34.0); MEAN CORPUSCULAR HGB CONC 35.6 g/dL (33.0-35.0); MEAN CORPUSCULAR VOLUME 85.3 fL (80.0-100.0); MEAN PLATELET VOLUME 7.5 fL (7.4-11.0); MONOCYTES # (AUTO) 0.5 x10^3/uL (0.3-0.8); MONOCYTES % (AUTO) 6.2 % (0.0-13.0); NEUTROPHILS # (AUTO) 4.9 x10^3/uL (2.2-4.8); NEUTROPHILS % (AUTO) 63.8 % (42.0-75.0); PLATELET COUNT 288 X10^3/uL (150.0-450.0); RED BLOOD COUNT 4.58 X10^6/uL (4.7-6.0); RED CELL DISTRIBUTION WIDTH 13.3 % (11.6-16.5); WHITE BLOOD COUNT 7.7 X10^3/uL (3.6-10.0)
[2023-03-28 06:15] LABS: ALANINE AMINOTRANSFERASE 12 Units/L (12-78); ALKALINE PHOSPHATASE 60 Units/L (46-116); ASPARTATE AMINO TRANSFERASE 11 Units/L (15-37); BLOOD UREA NITROGEN 4 mg/dL (7-18); CALCIUM 8.1 mg/dL (8.5-10.1); CARBON DIOXIDE 32.4 mmol/L (21-32); CHLORIDE 101 mmol/L (98-107); COR CA(FOR HYPOALB) 8.9 mg/dL (8.5-10.1); CREATININE 0.65 mg/dL (0.70-1.30); GLUCOSE 101 mg/dL (65-99); MAGNESIUM 1.8 mg/dL (2.0-2.9); POTASSIUM 3.8 mmol/L (3.5-5.1); SODIUM 139 mmol/L (136-145); TOTAL PROTEIN 6.6 g/dL (6.4-8.2); eGFR NON BLACK RACES > 60 (>60)
[2023-03-28] MEDS ORDERED: CONSULT PHARMACY - POTASSIUM & MAGNESIUM XX SCH (08:00)
--- NOTE | 2023-03-28 08:01 | DR.PROGNOT ---
HOSPITAL PROGRESS NOTE Progress Note for Day of: Progress Note Date: 03/28/23 Chief Complaint Chief Complaint: no changes .. feeling better , moderate abdominal pain, colostomy is not functioning yet, only mild drainage in the NIELS, White count electrolytes BUN/creatinine are normal.. Febrile Past Medical Family Social History Allergies: Allergies No Known Allergies Allergy (Verified 02/14/23 15:32) Vital Signs Vital Signs: Vital Signs Temperature 97.9 F Temperature 98.0 F Pulse Rate [Right Brachial] 76 Pulse Rate [Right Brachial] 78 Respiratory Rate 18 Respiratory Rate 18 Respiratory Rate 18 Respiratory Rate 18 Respiratory Rate 18 Blood Pressure [Left Arm] 118/72 Blood Pressure [Left Arm] 123/75 O2 Sat by Pulse Oximetry 98 O2 Sat by Pulse Oximetry 99 Physical Exam Respiratory: Normal Cardiovascular: Normal GI:Auscultation: Other (Abdomen is soft flat bowel sounds present.) Mood Description: Calm Speech Pattern: Clear and Appropriate Laboratory and Diagnostics 03/28/23 05:43 03/28/23 05:43 Labs: Laboratory WBC 7.7 X10^3/uL (3.6-10.0) 03/28/23 05:43 RBC 4.58 X10^6/uL (4.7-6.0) L 03/28/23 05:43 Hgb 13.9 g/dL (13.5-18.0) 03/28/23 05:43 Hct 39.1 % (42.0-54.0) L 03/28/23 05:43 MCV 85.3 fL (80.0-100.0) 03/28/23 05:43 MCH 30.4 pg (27.0-34.0) 03/28/23 05:43 MCHC 35.6 g/dL (33.0-35.0) H 03/28/23 05:43 RDW 13.3 % (11.6-16.5) 03/28/23 05:43 Plt Count 288 X10^3/uL (150.0-450.0) 03/28/23 05:43 MPV 7.5 fL (7.4-11.0) 03/28/23 05:43 Neut % (Auto) 63.8 % (42.0-75.0) 03/28/23 05:43 Lymph % (Auto) 25.7 % (21.0-51.0) 03/28/23 05:43 [place] % (Auto) 6.2 % (0.0-13.0) 03/28/23 05:43 Eos % (Auto) 3.2 % (0.9-2.9) H 03/28/23 05:43 Baso % (Auto) 1.1 % (0.2-1.0) H 03/28/23 05:43 Neut # (Auto) 4.9 x10^3/uL (2.2-4.8) H 03/28/23 05:43 Lymph # (Auto) 2.0 X10^3/uL (1.3-2.9) 03/28/23 05:43 [place] # (Auto) 0.5 x10^3/uL (0.3-0.8) 03/28/23 05:43 Eos # (Auto) 0.2 x10^3/uL (0.0-0.2) 03/28/23 05:43 Baso # (Auto) 0.1 X10^3/uL (0.0-0.1) 03/28/23 05:43 Absolute Nucleated RBC 0.0 /100WBC 03/28/23 05:43 Sodium 139 mmol/L (136-145) 03/28/23 05:43 Corrected Sodium TNP 03/28/23 05:43 Potassium 3.8 mmol/L (3.5-5.1) 03/28/23 05:43 Chloride 101 mmol/L (98-107) 03/28/23 05:43 Carbon Dioxide 32.4 mmol/L (21-32) H 03/28/23 05:43 BUN 4 mg/dL (7-18) L 03/28/23 05:43 Creatinine 0.65 mg/dL (0.70-1.30) L 03/28/23 05:43 Est GFR (MDRD) Af Amer > 60 (>60) 03/28/23 05:43 Est GFR (MDRD) Non-Af > 60 (>60) 03/28/23 05:43 Glucose 101 mg/dL (65-99) H 03/28/23 05:43 Calcium 8.1 mg/dL (8.5-10.1) L 03/28/23 05:43 Corrected Calcium 8.9 mg/dL (8.5-10.1) 03/28/23 05:43 Magnesium 1.8 mg/dL (2.0-2.9) L 03/28/23 05:43 Total Bilirubin 0.70 mg/dL (0.2-1.0) 03/28/23 05:43 AST 11 Units/L (15-37) L 03/28/23 05:43 ALT 12 Units/L (12-78) 03/28/23 05:43 Alkaline Phosphatase 60 Units/L (46-116) 03/28/23 05:43 Total Protein 6.6 g/dL (6.4-8.2) 03/28/23 05:43 Albumin 3.0 g/dL (3.4-5.0) L 03/28/23 05:43 Globulin 3.6 g/dL (2.5-4.5) 03/28/23 05:43 Albumin/Globulin Ratio 0.8 Ratio (1.1-2.1) L 03/28/23 05:43 Blood Type A POSITIVE 03/25/23 08:50 Antibody Screen Negative 03/25/23 08:44 Assessment and Plan 1: 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 To advance , DVT prophylaxis . d/c in am ..
[2023-03-28] MEDS: MAG-OX TAB PO SCH ×2 (09:57→11:06)
[2023-03-28] MEDS: PROTONIX INJ 40 MG VIAL IVP SCH (09:57)
[2023-03-28] MEDS: LOVENOX INJ 40 MG SYR SC SCH (09:57)
[2023-03-28] MEDS ORDERED: DILAUDID INJ IVP PRN (14:13)
[2023-03-28] MEDS: PERCOCET TAB 5/325 MG PO PRN ×2 (15:49→19:54)
[2023-03-29] MEDS: PERCOCET TAB 5/325 MG PO PRN ×2 (01:55→08:22)
[2023-03-29] MEDS: D5 1/2 NS + KCL 20 MEQ/L 1,000 ML IV SCH ×2 (02:01→04:14)
[2023-03-29] MEDS: ANCEF VIAL 1 GRAM IVP SCH (05:04)
[2023-03-29 05:25] LABS: BASOPHILS % (AUTO) 0.6 % (0.2-1.0); EOSINOPHILS # (AUTO) 0.3 x10^3/uL (0.0-0.2); EOSINOPHILS % (AUTO) 3.1 % (0.9-2.9); HEMATOCRIT 40.4 % (42.0-54.0); HEMOGLOBIN 14.3 g/dL (13.5-18.0); LYMPHOCYTES % (AUTO) 22.9 % (21.0-51.0); MEAN CORPUSCULAR HEMOGLOBIN 30.4 pg (27.0-34.0); MEAN CORPUSCULAR HGB CONC 35.5 g/dL (33.0-35.0); MEAN CORPUSCULAR VOLUME 85.6 fL (80.0-100.0); MEAN PLATELET VOLUME 7.6 fL (7.4-11.0); MONOCYTES # (AUTO) 0.5 x10^3/uL (0.3-0.8); NEUTROPHILS # (AUTO) 5.8 x10^3/uL (2.2-4.8); NEUTROPHILS % (AUTO) 67.4 % (42.0-75.0); PLATELET COUNT 331 X10^3/uL (150.0-450.0); RED BLOOD COUNT 4.72 X10^6/uL (4.7-6.0); RED CELL DISTRIBUTION WIDTH 13.1 % (11.6-16.5); WHITE BLOOD COUNT 8.6 X10^3/uL (3.6-10.0)
[2023-03-29 05:38] LABS: ALANINE AMINOTRANSFERASE 11 Units/L (12-78); ALBUMIN 2.8 g/dL (3.4-5.0); ALKALINE PHOSPHATASE 64 Units/L (46-116); ASPARTATE AMINO TRANSFERASE 10 Units/L (15-37); BLOOD UREA NITROGEN 5 mg/dL (7-18); CALCIUM 8.1 mg/dL (8.5-10.1); CARBON DIOXIDE 33.2 mmol/L (21-32); CHLORIDE 102 mmol/L (98-107); COR CA(FOR HYPOALB) 9.1 mg/dL (8.5-10.1); COR NA(FOR HYPERGLY) 140 mmol/L (136-145); CREATININE 0.76 mg/dL (0.70-1.30); GLUCOSE 121 mg/dL (65-99); MAGNESIUM 1.9 mg/dL (2.0-2.9); POTASSIUM 4.2 mmol/L (3.5-5.1); SODIUM 139 mmol/L (136-145); TOTAL PROTEIN 6.7 g/dL (6.4-8.2); eGFR NON BLACK RACES > 60 (>60)
[2023-03-29] MEDS: LOVENOX INJ 40 MG SYR SC SCH (08:20)
[2023-03-29] MEDS: PROTONIX INJ 40 MG VIAL IVP SCH (08:20)
[2023-03-29 08:23] VITALS: RESP 20
[2023-03-29 08:48] VITALS: BP 128/85; PULSE 74; TEMP 97.7; O2SAT 100
== END 2023-03-29 08:55 | DRG 331 ==
LOC: MED/SURG 08:08
PROVIDERS: ADMIT Surgery; ATTEND Surgery
DX: C18.9 Malignant neoplasm of colon, unspecified; R10.84 Generalized abdominal pain

== ENCOUNTER 2024-02-03 09:51 | Inpatient (IN) ==
--- NOTE | 2024-02-03 10:07 | DR.ABDMALE ---
HPI Time seen Time Seen by Provider: 02/03/24 10:07 COVID-19 Coronavirus risk:travel/contact w/high risk person: No Has patient experienced Coronavirus symptoms: No Source History provided by:: Patient [facility] Past Medical History: denies Diabetes or Hypertension Past Surgical History: Yes Surgical History: Bowel Resection Social History Do you use any recreational Drugs:: No Travel Risk Coronavirus risk:travel/contact w/high risk person: No Has patient experienced Coronavirus symptoms: No PE Vital Signs Vital Signs: Temp Pulse Resp BP Pulse Ox O2 Del Method 02/03/24 10:02 97.9 F 76 18 132/76 100 Room Air ROR Labs Reviewed 02/03/24 10:30 02/03/24 10:30 Laboratory: WBC 12.7 X10^3/uL (3.6-10.0) H 02/03/24 10:30 RBC 4.76 X10^6/uL (4.7-6.0) 02/03/24 10:30 Hgb 13.9 g/dL (13.5-18.0) 02/03/24 10:30 Hct 41.0 % (42.0-54.0) L 02/03/24 10:30 MCV 86.1 fL (80.0-100.0) 02/03/24 10:30 MCH 29.2 pg (27.0-34.0) 02/03/24 10:30 MCHC 33.9 g/dL (33.0-35.0) 02/03/24 10:30 RDW 12.7 % (11.6-16.5) 02/03/24 10:30 Plt Count 302 X10^3/uL (150.0-450.0) 02/03/24 10:30 MPV 7.8 fL (7.4-11.0) 02/03/24 10:30 Neut % (Auto) 83.9 % (42.0-75.0) H 02/03/24 10:30 Lymph % (Auto) 11.7 % (21.0-51.0) L 02/03/24 10:30 [place] % (Auto) 3.5 % (0.0-13.0) 02/03/24 10:30 Eos % (Auto) 0.4 % (0.9-2.9) L 02/03/24 10:30 Baso % (Auto) 0.5 % (0.2-1.0) 02/03/24 10:30 Neut # (Auto) 10.7 x10^3/uL (2.2-4.8) H 02/03/24 10:30 Lymph # (Auto) 1.5 X10^3/uL (1.3-2.9) 02/03/24 10:30 [place] # (Auto) 0.5 x10^3/uL (0.3-0.8) 02/03/24 10:30 Eos # (Auto) 0.1 x10^3/uL (0.0-0.2) 02/03/24 10:30 Baso # (Auto) 0.1 X10^3/uL (0.0-0.1) 02/03/24 10:30 Absolute Nucleated RBC 0.0 /100WBC 02/03/24 10:30 Sodium 140 mmol/L (136-145) 02/03/24 10:30 Corrected Sodium 142 mmol/L (136-145) 02/03/24 10:30 Potassium 4.1 mmol/L (3.5-5.1) 02/03/24 10:30 Chloride 102 mmol/L (98-107) 02/03/24 10:30 Carbon Dioxide 32.1 mmol/L (21-32) H 02/03/24 10:30 BUN 11 mg/dL (7-18) 02/03/24 10:30 Creatinine 0.84 mg/dL (0.70-1.30) 02/03/24 10:30 Est GFR (MDRD) Af Amer > 60 (>60) 02/03/24 10:30 Est GFR (MDRD) Non-Af > 60 (>60) 02/03/24 10:30 Glucose 173 mg/dL (65-99) H 02/03/24 10:30 Calcium 8.8 mg/dL (8.5-10.1) 02/03/24 10:30 Corrected Calcium TNP 02/03/24 10:30 Total Bilirubin 0.70 mg/dL (0.2-1.0) 02/03/24 10:30 AST 15 Units/L (15-37) 02/03/24 10:30 ALT 15 Units/L (12-78) 02/03/24 10:30 Alkaline Phosphatase 70 Units/L (46-116) 02/03/24 10:30 Total Protein 7.9 g/dL (6.4-8.2) 02/03/24 10:30 Albumin 4.3 g/dL (3.4-5.0) 02/03/24 10:30 Globulin 3.6 g/dL (2.5-4.5) 02/03/24 10:30 Albumin/Globulin Ratio 1.2 Ratio (1.1-2.1) 02/03/24 10:30 Amylase 43 Units/L (25-115) 02/03/24 10:30 Lipase 27 Units/L (16-77) 02/03/24 10:30 Opioid Opioid Risk Tool Age (Lauro box if 16-45): Yes History of Preadolescent Sexual Abuse: No Total: 1 Total Score Risk Category: Low Risk Copyright: Umesh CHACON predicting aberrant behaviors Discharge Plan Discharge Plan Patient Disposition: 01 HOME, SELF-CARE Condition: Stable Prescriptions: No Action [facility] Concerns: Post Hospitalization: new medications and changes needed to prevent readmission or further decline. Pt educated and given instructions on all concerns. Plan of Treatment: Continue with present treatment and follow up plan. Pt is to keep follow up appointment as instructed and take medications as ordered. Orders to Discharge Patient Discharge Orders: Transfer (Routine); Ordered 02/03/24 Ordered By: KAILYN SHIN Instructions Stand Alone Forms: Post Hospital Follow Up Care
[2024-02-03 10:46] LABS: BASOPHILS # (AUTO) 0.1 X10^3/uL (0.0-0.1); BASOPHILS % (AUTO) 0.5 % (0.2-1.0); EOSINOPHILS # (AUTO) 0.1 x10^3/uL (0.0-0.2); EOSINOPHILS % (AUTO) 0.4 % (0.9-2.9); HEMOGLOBIN 13.9 g/dL (13.5-18.0); LYMPHOCYTES # (AUTO) 1.5 X10^3/uL (1.3-2.9); LYMPHOCYTES % (AUTO) 11.7 % (21.0-51.0); MEAN CORPUSCULAR HEMOGLOBIN 29.2 pg (27.0-34.0); MEAN CORPUSCULAR HGB CONC 33.9 g/dL (33.0-35.0); MEAN CORPUSCULAR VOLUME 86.1 fL (80.0-100.0); MEAN PLATELET VOLUME 7.8 fL (7.4-11.0); MONOCYTES # (AUTO) 0.5 x10^3/uL (0.3-0.8); MONOCYTES % (AUTO) 3.5 % (0.0-13.0); NEUTROPHILS # (AUTO) 10.7 x10^3/uL (2.2-4.8); NEUTROPHILS % (AUTO) 83.9 % (42.0-75.0); PLATELET COUNT 302 X10^3/uL (150.0-450.0); RED BLOOD COUNT 4.76 X10^6/uL (4.7-6.0); RED CELL DISTRIBUTION WIDTH 12.7 % (11.6-16.5); WHITE BLOOD COUNT 12.7 X10^3/uL (3.6-10.0)
[2024-02-03 10:58] LABS: ALANINE AMINOTRANSFERASE 15 Units/L (12-78); ALBUMIN 4.3 g/dL (3.4-5.0); ALKALINE PHOSPHATASE 70 Units/L (46-116); AMYLASE 43 Units/L (25-115); ASPARTATE AMINO TRANSFERASE 15 Units/L (15-37); BLOOD UREA NITROGEN 11 mg/dL (7-18); CALCIUM 8.8 mg/dL (8.5-10.1); CARBON DIOXIDE 32.1 mmol/L (21-32); CHLORIDE 102 mmol/L (98-107); COR NA(FOR HYPERGLY) 142 mmol/L (136-145); CREATININE 0.84 mg/dL (0.70-1.30); GLUCOSE 173 mg/dL (65-99); LIPASE 27 Units/L (16-77); POTASSIUM 4.1 mmol/L (3.5-5.1); SODIUM 140 mmol/L (136-145); TOTAL PROTEIN 7.9 g/dL (6.4-8.2); eGFR NON BLACK RACES > 60 (>60)
--- NOTE | 2024-02-03 10:59 | CT ---
EXAM:CT abdomen pelvis without contrastHISTORY:Acute mid and lower abdominal pain with nausea and vomitingTECHNIQUE:Axial noncontrast images with coronal and sagittal reformats. Dose reduction procedures were used with mA/kv adjusted for body size. This examination is limited due to the lack of intravenous and oral contrast. The examination was performed in this manner at the sole direction of the ordering caregiver.COMPARISON:01/12/2024FINDINGS: Lung bases are clear. The liver, spleen, adrenal glands, and pancreas appear within normal limits but only to the limitations of an unenhanced examination. No opaque stones are present within the gallbladder. Kidneys are unobstructed and without stones. No ureteral calculi are identified. Appendix is not identified with absolute certainty. There are no secondary signs of appendicitis present. Abdominal aorta is normal in caliber. No enlarged intraperitoneal or retroperitoneal lymphadenopathy identified. There are postsurgical changes in the mid transverse colon where there appears to be a patent anastomosis present. Postsurgical changes also present in the midsigmoid colon where there appears to be a patent anastomosis present. Previously noted sigmoid mass no longer identified. No findings to suggest colitis, diverticulitis or colonic obstruction. There are, however, multiple dilated predominantly fluid-filled loops of small bowel in the left abdomen and mid pelvis. There appears to be transition to more normal caliber nondistended small bowel in the right midabdomen. Findings are suggestive of a partial mid small bowel obstruction the etiology of which is not obvious. Most likely etiology would be an adhesion although internal herniation and volvulus not excluded. Surgical evaluation is recommended. No pelvic masses, pelvic fluid, or pelvic lymphadenopathy identified. No definite bladder abnormality identified. Prostate gland is prominent but not grossly enlarged. No lytic or blastic skeletal lesions of significance identified.IMPRESSION:Findings suggestive of a partial mid small bowel obstruction of uncertain etiology at this time. Possible etiologies include adhesion, internal herniation, less likely volvulus. Surgical evaluation is recommended.Recent postsurgical changes as aboveTHIS IS AN ELECTRONICALLY VERIFIED FINAL REPORT02/03/2024 10:56 AM - Electronically signed by Mohan Pop MD
[2024-02-03] MEDS ORDERED: NS 250 ML IV 25 ML IV PRN (11:35)
[2024-02-03] MEDS ORDERED: ZOSYN VIAL 3.375 GRAMS 3.375 G in NS 100 ML IV 100 ML IV SCH (11:36)
[2024-02-03] MEDS: LR 1,000 ML IV 1,000 ML IV SCH (11:57)
[2024-02-03] MEDS: ZOSYN VIAL 3.375 GRAMS 3.375 G in NS 100 ML IV 100 ML IV SCH (11:57)
[2024-02-03] MEDS ORDERED: ZOFRAN INJ 4 MG VIAL IVP PRN ×2 (14:14→14:38)
[2024-02-03] MEDS: DILAUDID INJ IVP PRN (14:31)
[2024-02-03] MEDS ORDERED: MORPHINE SULFATE INJ 2 MG INJ IVP PRN (14:38)
[2024-02-03 17:58] VITALS: BMI 25.2
[2024-02-03 20:07] LABS: BILIRUBIN,URINE NEGATIVE (NEGATIVE); BLOOD/HEMOGLOBIN,URINE NEGATIVE (NEGATIVE); GLUCOSE, URINE NEGATIVE (NEGATIVE); KETONES,URINE 2+ (NEGATIVE); LEUKOCYTE ESTERASE ,URINE NEGATIVE (NEGATIVE); NITRITES,URINE NEGATIVE (NEGATIVE); PROTEIN,URINE 1+ (NEGATIVE); UROBILINOGEN,URINE NORMAL (NORMAL)
[2024-02-03 20:28] LABS: APPEARANCE,URINE CLEAR (CLEAR); COLOR,URINE YELLOW (YELLOW)
[2024-02-03 20:29] LABS: BACTERIA,URINE NEGATIVE /HPF (NEGATIVE); SQUAMOUS EPITHELIAL CELL,UR RARE /HPF (NEGATIVE)
[2024-02-03] MEDS: NS 250 ML IV 25 ML IV PRN (21:12)
[2024-02-03] MEDS: PROTONIX INJ 40 MG VIAL IVP SCH (21:12)
[2024-02-04 05:09] LABS: BASOPHILS % (AUTO) 0.2 % (0.2-1.0); EOSINOPHILS % (AUTO) 0.2 % (0.9-2.9); HEMATOCRIT 34.7 % (42.0-54.0); HEMOGLOBIN 12.2 g/dL (13.5-18.0); LYMPHOCYTES % (AUTO) 9.4 % (21.0-51.0); MEAN CORPUSCULAR HEMOGLOBIN 30.4 pg (27.0-34.0); MEAN CORPUSCULAR HGB CONC 35.3 g/dL (33.0-35.0); MEAN CORPUSCULAR VOLUME 86.2 fL (80.0-100.0); MEAN PLATELET VOLUME 7.7 fL (7.4-11.0); MONOCYTES # (AUTO) 0.7 x10^3/uL (0.3-0.8); MONOCYTES % (AUTO) 6.2 % (0.0-13.0); NEUTROPHILS # (AUTO) 9.2 x10^3/uL (2.2-4.8); PLATELET COUNT 259 X10^3/uL (150.0-450.0); RED BLOOD COUNT 4.02 X10^6/uL (4.7-6.0); RED CELL DISTRIBUTION WIDTH 12.7 % (11.6-16.5)
[2024-02-04 05:41] LABS: ALANINE AMINOTRANSFERASE 8 Units/L (12-78); ALBUMIN 3.1 g/dL (3.4-5.0); ALKALINE PHOSPHATASE 54 Units/L (46-116); ASPARTATE AMINO TRANSFERASE 10 Units/L (15-37); BLOOD UREA NITROGEN 12 mg/dL (7-18); CARBON DIOXIDE 28.9 mmol/L (21-32); CHLORIDE 103 mmol/L (98-107); COR CA(FOR HYPOALB) 8.7 mg/dL (8.5-10.1); COR NA(FOR HYPERGLY) 139 mmol/L (136-145); CREATININE 0.66 mg/dL (0.70-1.30); GLUCOSE 125 mg/dL (65-99); POTASSIUM 3.5 mmol/L (3.5-5.1); SODIUM 138 mmol/L (136-145); TOTAL PROTEIN 6.2 g/dL (6.4-8.2); eGFR NON BLACK RACES > 60 (>60)
--- NOTE | 2024-02-04 06:41 | RAD ---
EXAM:KUBHISTORY:Small-bowel obstructionCOMPARISON:01/17/2024 KUB, 02/03/2024 CT abdomen pelvisFINDINGS:There is dilated small bowel loop in the left upper quadrant. Gas is present distally within the colon. Findings could be consistent with a partial small bowel obstruction. It should be noted that the predominance of dilated loops on the recent CT were nearly entirely fluid-filled and would not definitely be expected to be seen on plain film. No abnormal masses or abnormal calcifications are identified. Regional skeleton is intact.IMPRESSION:Findings consistent with partial small bowel obstructionTHIS IS AN ELECTRONICALLY VERIFIED FINAL REPORT02/04/2024 6:36 AM - Electronically signed by Mohan Pop MD
[2024-02-04] MEDS: CONSULT PHARMACY - POTASSIUM & MAGNESIUM XX SCH (08:18)
--- NOTE | 2024-02-04 08:46 | DR.PROGNOT ---
HOSPITAL PROGRESS NOTE Progress Note for Day of: Progress Note Date: 02/04/24 Chief Complaint Chief Complaint: Less abdominal pain today but still having pain mid abdomen towards the right side. No nausea or vomiting this morning, no bowel movement. White count 11, magnesium slightly low 1.5. Normal BUN and creatinine Past Medical Family Social History Past Med/Fam/Surg Hx: No changes since H&P (Known history of sigmoid cancer status postresection and closure of colostomy.) Allergies: Allergies No Known Allergies Allergy (Verified 06/04/23 09:14) Vital Signs Vital Signs: Vital Signs Temperature 98.3 F Temperature 98.5 F Pulse Rate 75 Pulse Rate 70 Pulse Rate 74 Pulse Rate 79 Pulse Rate 84 Pulse Rate 86 Pulse Rate 79 Pulse Rate 75 Respiratory Rate 24 Respiratory Rate 18 Respiratory Rate 16 Respiratory Rate 16 Respiratory Rate 16 Respiratory Rate 11 Respiratory Rate 16 Respiratory Rate 23 Respiratory Rate 22 Respiratory Rate 17 Blood Pressure 117/72 Blood Pressure 119/73 Blood Pressure 115/69 Blood Pressure 115/69 Blood Pressure 115/62 Blood Pressure 114/60 Blood Pressure 126/59 Blood Pressure 124/72 Blood Pressure 123/70 O2 Sat by Pulse Oximetry 98 O2 Sat by Pulse Oximetry 99 O2 Sat by Pulse Oximetry 99 O2 Sat by Pulse Oximetry 97 O2 Sat by Pulse Oximetry 96 O2 Sat by Pulse Oximetry 99 O2 Sat by Pulse Oximetry 100 O2 Sat by Pulse Oximetry 99 Physical Exam Oriented: Normal Eyes: Normal Ear: Normal Nose: Normal Throat: Normal Respiratory: Normal Cardiovascular: Normal GI:Auscultation: Decreased GI:Palpation: Normal Speech Pattern: Clear and Appropriate Laboratory and Diagnostics 02/04/24 04:21 02/04/24 04:21 Labs: Laboratory WBC 11.0 X10^3/uL (3.6-10.0) H 02/04/24 04:21 RBC 4.02 X10^6/uL (4.7-6.0) L 02/04/24 04:21 Hgb 12.2 g/dL (13.5-18.0) L 02/04/24 04:21 Hct 34.7 % (42.0-54.0) L 02/04/24 04:21 MCV 86.2 fL (80.0-100.0) 02/04/24 04:21 MCH 30.4 pg (27.0-34.0) 02/04/24 04:21 MCHC 35.3 g/dL (33.0-35.0) H 02/04/24 04:21 RDW 12.7 % (11.6-16.5) 02/04/24 04:21 Plt Count 259 X10^3/uL (150.0-450.0) 02/04/24 04:21 MPV 7.7 fL (7.4-11.0) 02/04/24 04:21 Neut % (Auto) 84.0 % (42.0-75.0) H 02/04/24 04:21 Lymph % (Auto) 9.4 % (21.0-51.0) L 02/04/24 04:21 [place] % (Auto) 6.2 % (0.0-13.0) 02/04/24 04:21 Eos % (Auto) 0.2 % (0.9-2.9) L 02/04/24 04:21 Baso % (Auto) 0.2 % (0.2-1.0) 02/04/24 04:21 Neut # (Auto) 9.2 x10^3/uL (2.2-4.8) H 02/04/24 04:21 Lymph # (Auto) 1.0 X10^3/uL (1.3-2.9) L 02/04/24 04:21 [place] # (Auto) 0.7 x10^3/uL (0.3-0.8) 02/04/24 04:21 Eos # (Auto) 0.0 x10^3/uL (0.0-0.2) 02/04/24 04:21 Baso # (Auto) 0.0 X10^3/uL (0.0-0.1) 02/04/24 04:21 Absolute Nucleated RBC 0.0 /100WBC 02/04/24 04:21 Sodium 138 mmol/L (136-145) 02/04/24 04:21 Corrected Sodium 139 mmol/L (136-145) 02/04/24 04:21 Potassium 3.5 mmol/L (3.5-5.1) 02/04/24 04:21 Chloride 103 mmol/L (98-107) 02/04/24 04:21 Carbon Dioxide 28.9 mmol/L (21-32) 02/04/24 04:21 BUN 12 mg/dL (7-18) 02/04/24 04:21 Creatinine 0.66 mg/dL (0.70-1.30) L 02/04/24 04:21 Est GFR (MDRD) Af Amer > 60 (>60) 02/04/24 04:21 Est GFR (MDRD) Non-Af > 60 (>60) 02/04/24 04:21 Glucose 125 mg/dL (65-99) H 02/04/24 04:21 Calcium 8.0 mg/dL (8.5-10.1) L 02/04/24 04:21 Corrected Calcium 8.7 mg/dL (8.5-10.1) 02/04/24 04:21 Magnesium 1.5 mg/dL (2.0-2.9) L 02/04/24 04:21 Total Bilirubin 1.30 mg/dL (0.2-1.0) H 02/04/24 04:21 AST 10 Units/L (15-37) L 02/04/24 04:21 ALT 8 Units/L (12-78) L 02/04/24 04:21 Alkaline Phosphatase 54 Units/L (46-116) 02/04/24 04:21 Total Protein 6.2 g/dL (6.4-8.2) L 02/04/24 04:21 Albumin 3.1 g/dL (3.4-5.0) L 02/04/24 04:21 Globulin 3.1 g/dL (2.5-4.5) 02/04/24 04:21 Albumin/Globulin Ratio 1.0 Ratio (1.1-2.1) L 02/04/24 04:21 Amylase 43 Units/L (25-115) 02/03/24 10:30 Lipase 27 Units/L (16-77) 02/03/24 10:30 Specimen Type Clean catch urine 02/03/24 19:38 Urine Color Yellow (YELLOW) 02/03/24 19:38 Urine Appearance Clear (CLEAR) 02/03/24 19:38 Urine pH 7.0 (5.0 - 8.0) 02/03/24 19:38 Ur Specific [place] 1.010 (1.000-1.030) 02/03/24 19:38 Urine Protein 1+ (NEGATIVE) 02/03/24 19:38 Urine Glucose (UA) Negative (NEGATIVE) 02/03/24 19:38 Urine Ketones 2+ (NEGATIVE) 02/03/24 19:38 Urine Blood Negative (NEGATIVE) 02/03/24 19:38 Urine Nitrite Negative (NEGATIVE) 02/03/24 19:38 Urine Bilirubin Negative (NEGATIVE) 02/03/24 19:38 Urine Urobilinogen Normal (NORMAL) 02/03/24 19:38 Ur Leukocyte Esterase Negative (NEGATIVE) 02/03/24 19:38 Urine RBC 3-5 /HPF (0-3) A 02/03/24 19:38 Urine WBC 0-2 /HPF (0-5) 02/03/24 19:38 Ur Squamous Epith Cells Rare /HPF (NEGATIVE) 02/03/24 19:38 Urine Bacteria Negative /HPF (NEGATIVE) 02/03/24 19:38 Urine Mucus Many /HPF (NEGATIVE) 02/03/24 19:38 Ur Culture Indicated? No/not indicated 02/03/24 19:38 Assessment and Plan 1: Partial small bowel obstruction. To keep n.p.o., IV fluid, repeat KUB. 2: History of colon cancer status post resection. To repeat CEA.
[2024-02-04] MEDS: MAGNESIUM SULFATE 1 GRAM/100 mL PREMIX 1 G/100 ML BAG IV SCH (08:51)
[2024-02-04] MEDS: LOVENOX INJ 40 MG SYR SC SCH (08:51)
[2024-02-04] MEDS: K-RIDER 10 MEQ/100 ML WATER 10 MEQ/100 ML BAG IV SCH (11:19)
--- NOTE | 2024-02-04 13:21 | RAD ---
EXAM: KUB HISTORY: SBO COMPARISON: 02/03/2024 FINDINGS: Continued findings of mild localized small-bowel dilatation although a normal amount of gas is prese nt in the colon. There is no evidence for developing fluid collection, mass or other new abnormality . IMPRESSION: No change. Findings consistent with ileus or partial SBO. THIS IS AN ELECTRONICALLY VERIFIED FINAL REPORT 02/04/2024 1:10 PM - Electronically signed by Vadim Marcelino MD
[2024-02-05 05:18] LABS: BASOPHILS % (AUTO) 0.3 % (0.2-1.0); EOSINOPHILS # (AUTO) 0.1 x10^3/uL (0.0-0.2); EOSINOPHILS % (AUTO) 1.4 % (0.9-2.9); HEMATOCRIT 32.9 % (42.0-54.0); HEMOGLOBIN 11.5 g/dL (13.5-18.0); LYMPHOCYTES # (AUTO) 1.8 X10^3/uL (1.3-2.9); LYMPHOCYTES % (AUTO) 19.1 % (21.0-51.0); MEAN CORPUSCULAR HEMOGLOBIN 30.4 pg (27.0-34.0); MEAN CORPUSCULAR HGB CONC 35.1 g/dL (33.0-35.0); MEAN CORPUSCULAR VOLUME 86.5 fL (80.0-100.0); MEAN PLATELET VOLUME 7.7 fL (7.4-11.0); MONOCYTES # (AUTO) 0.6 x10^3/uL (0.3-0.8); MONOCYTES % (AUTO) 6.7 % (0.0-13.0); NEUTROPHILS # (AUTO) 6.9 x10^3/uL (2.2-4.8); NEUTROPHILS % (AUTO) 72.5 % (42.0-75.0); PLATELET COUNT 242 X10^3/uL (150.0-450.0); RED CELL DISTRIBUTION WIDTH 12.7 % (11.6-16.5); WHITE BLOOD COUNT 9.6 X10^3/uL (3.6-10.0)
[2024-02-05 05:22] LABS: MAGNESIUM 1.8 mg/dL (2.0-2.9); POTASSIUM 3.6 mmol/L (3.5-5.1)
[2024-02-05] MEDS ORDERED: CONSULT PHARMACY - POTASSIUM & MAGNESIUM XX SCH (07:00)
--- NOTE | 2024-02-05 07:20 | RAD ---
EXAMINATION:KUBHISTORY:SBO; COLON CA, COLON RESECTION 03/29/2023 COLOSTOMY REVERSAL .COMPARISON STUDY:KUB 02/04/2024TECHNIQUE:2 supine AP views of the abdomen and pelvisFINDINGS:Mild gaseous distention of the bowel. The visualized soft tissue outlines and osseous structures appear intact.IMPRESSION:Mild gaseous distention of bowel.THIS IS AN ELECTRONICALLY VERIFIED FINAL REPORT02/05/2024 7:16 AM - Electronically signed by Dee Frazier MD
[2024-02-05] MEDS: MAG-OX TAB PO SCH (08:26)
[2024-02-05] MEDS: KLOR-CON PO SCH (08:26)
[2024-02-05] MEDS: POTASSIUM CHLORIDE INJ 40 MEQ VIAL 40 MEQ, MAGNESIUM SULFATE 50% INJ VIAL 4 G in NS 500... IV ONE (08:47)
--- NOTE | 2024-02-05 11:39 | DR.PROGNOT ---
HOSPITAL PROGRESS NOTE Progress Note for Day of: Progress Note Date: 02/05/24 Chief Complaint Chief Complaint: Less abdominal pain today but still having mid abdominal pain towards the right side. No nausea or vomiting this morning, passing flatus, no bowel movement yet. White count 9.6, magnesium slightly low 1.6. Normal BUN and creatinine.. Past Medical Family Social History Past Med/Fam/Surg Hx: No changes since H&P Allergies: Allergies No Known Allergies Allergy (Verified 06/04/23 09:14) Vital Signs Vital Signs: Vital Signs Temperature 98.7 F Pulse Rate 76 Pulse Rate 80 Pulse Rate 76 Pulse Rate 80 Pulse Rate 96 Pulse Rate 83 Pulse Rate 79 Pulse Rate 83 Pulse Rate 87 Respiratory Rate 19 Respiratory Rate 21 Respiratory Rate 15 Respiratory Rate 22 Respiratory Rate 28 Respiratory Rate 25 Respiratory Rate 16 Respiratory Rate 16 Respiratory Rate 16 Blood Pressure 124/69 Blood Pressure 124/65 Blood Pressure 134/72 Blood Pressure 124/67 Blood Pressure 133/70 Blood Pressure 132/61 Blood Pressure 119/56 Blood Pressure 130/57 O2 Sat by Pulse Oximetry 100 O2 Sat by Pulse Oximetry 100 O2 Sat by Pulse Oximetry 100 O2 Sat by Pulse Oximetry 100 O2 Sat by Pulse Oximetry 100 O2 Sat by Pulse Oximetry 100 O2 Sat by Pulse Oximetry 98 O2 Sat by Pulse Oximetry 98 O2 Sat by Pulse Oximetry 99 Physical Exam Oriented: Normal Eyes: Normal Ear: Normal Nose: Normal Throat: Normal Respiratory: Normal Cardiovascular: Normal GI:Auscultation: Normal GI:Palpation: Normal GI: Tenderness: Other (Diffuse moderate mid abdominal tenderness, no rebound. Bowel sounds were present.) Speech Pattern: Clear and Appropriate Laboratory and Diagnostics 02/05/24 04:43 02/05/24 04:43 Labs: Laboratory WBC 9.6 X10^3/uL (3.6-10.0) 02/05/24 04:43 RBC 3.80 X10^6/uL (4.7-6.0) L 02/05/24 04:43 Hgb 11.5 g/dL (13.5-18.0) L 02/05/24 04:43 Hct 32.9 % (42.0-54.0) L 02/05/24 04:43 MCV 86.5 fL (80.0-100.0) 02/05/24 04:43 MCH 30.4 pg (27.0-34.0) 02/05/24 04:43 MCHC 35.1 g/dL (33.0-35.0) H 02/05/24 04:43 RDW 12.7 % (11.6-16.5) 02/05/24 04:43 Plt Count 242 X10^3/uL (150.0-450.0) 02/05/24 04:43 MPV 7.7 fL (7.4-11.0) 02/05/24 04:43 Neut % (Auto) 72.5 % (42.0-75.0) 02/05/24 04:43 Lymph % (Auto) 19.1 % (21.0-51.0) L 02/05/24 04:43 [place] % (Auto) 6.7 % (0.0-13.0) 02/05/24 04:43 Eos % (Auto) 1.4 % (0.9-2.9) 02/05/24 04:43 Baso % (Auto) 0.3 % (0.2-1.0) 02/05/24 04:43 Neut # (Auto) 6.9 x10^3/uL (2.2-4.8) H 02/05/24 04:43 Lymph # (Auto) 1.8 X10^3/uL (1.3-2.9) 02/05/24 04:43 [place] # (Auto) 0.6 x10^3/uL (0.3-0.8) 02/05/24 04:43 Eos # (Auto) 0.1 x10^3/uL (0.0-0.2) 02/05/24 04:43 Baso # (Auto) 0.0 X10^3/uL (0.0-0.1) 02/05/24 04:43 Absolute Nucleated RBC 0.0 /100WBC 02/05/24 04:43 Sodium 138 mmol/L (136-145) 02/04/24 04:21 Corrected Sodium 139 mmol/L (136-145) 02/04/24 04:21 Potassium 3.6 mmol/L (3.5-5.1) 02/05/24 04:43 Chloride 103 mmol/L (98-107) 02/04/24 04:21 Carbon Dioxide 28.9 mmol/L (21-32) 02/04/24 04:21 BUN 12 mg/dL (7-18) 02/04/24 04:21 Creatinine 0.66 mg/dL (0.70-1.30) L 02/04/24 04:21 Est GFR (MDRD) Af Amer > 60 (>60) 02/04/24 04:21 Est GFR (MDRD) Non-Af > 60 (>60) 02/04/24 04:21 Glucose 125 mg/dL (65-99) H 02/04/24 04:21 Calcium 8.0 mg/dL (8.5-10.1) L 02/04/24 04:21 Corrected Calcium 8.7 mg/dL (8.5-10.1) 02/04/24 04:21 Magnesium 1.8 mg/dL (2.0-2.9) L 02/05/24 04:43 Total Bilirubin 1.30 mg/dL (0.2-1.0) H 02/04/24 04:21 AST 10 Units/L (15-37) L 02/04/24 04:21 ALT 8 Units/L (12-78) L 02/04/24 04:21 Alkaline Phosphatase 54 Units/L (46-116) 02/04/24 04:21 Total Protein 6.2 g/dL (6.4-8.2) L 02/04/24 04:21 Albumin 3.1 g/dL (3.4-5.0) L 02/04/24 04:21 Globulin 3.1 g/dL (2.5-4.5) 02/04/24 04:21 Albumin/Globulin Ratio 1.0 Ratio (1.1-2.1) L 02/04/24 04:21 Amylase 43 Units/L (25-115) 02/03/24 10:30 Lipase 27 Units/L (16-77) 02/03/24 10:30 Specimen Type Clean catch urine 02/03/24 19:38 Urine Color Yellow (YELLOW) 02/03/24 19:38 Urine Appearance Clear (CLEAR) 02/03/24 19:38 Urine pH 7.0 (5.0 - 8.0) 02/03/24 19:38 Ur Specific [place] 1.010 (1.000-1.030) 02/03/24 19:38 Urine Protein 1+ (NEGATIVE) 02/03/24 19:38 Urine Glucose (UA) Negative (NEGATIVE) 02/03/24 19:38 Urine Ketones 2+ (NEGATIVE) 02/03/24 19:38 Urine Blood Negative (NEGATIVE) 02/03/24 19:38 Urine Nitrite Negative (NEGATIVE) 02/03/24 19:38 Urine Bilirubin Negative (NEGATIVE) 02/03/24 19:38 Urine Urobilinogen Normal (NORMAL) 02/03/24 19:38 Ur Leukocyte Esterase Negative (NEGATIVE) 02/03/24 19:38 Urine RBC 3-5 /HPF (0-3) A 02/03/24 19:38 Urine WBC 0-2 /HPF (0-5) 02/03/24 19:38 Ur Squamous Epith Cells Rare /HPF (NEGATIVE) 02/03/24 19:38 Urine Bacteria Negative /HPF (NEGATIVE) 02/03/24 19:38 Urine Mucus Many /HPF (NEGATIVE) 02/03/24 19:38 Ur Culture Indicated? No/not indicated 02/03/24 19:38 Assessment and Plan 1: Partial small bowel obstruction. To keep n.p.o., IV fluid, repeat KUB. On full liquid diet 2: History of colon cancer status post resection. To repeat CEA.
[2024-02-06 05:17] LABS: BASOPHILS % (AUTO) 0.5 % (0.2-1.0); EOSINOPHILS # (AUTO) 0.3 x10^3/uL (0.0-0.2); EOSINOPHILS % (AUTO) 3.3 % (0.9-2.9); HEMATOCRIT 33.7 % (42.0-54.0); HEMOGLOBIN 11.7 g/dL (13.5-18.0); LYMPHOCYTES # (AUTO) 1.8 X10^3/uL (1.3-2.9); LYMPHOCYTES % (AUTO) 23.4 % (21.0-51.0); MEAN CORPUSCULAR HGB CONC 34.9 g/dL (33.0-35.0); MEAN CORPUSCULAR VOLUME 86.1 fL (80.0-100.0); MEAN PLATELET VOLUME 7.7 fL (7.4-11.0); MONOCYTES # (AUTO) 0.5 x10^3/uL (0.3-0.8); MONOCYTES % (AUTO) 7.1 % (0.0-13.0); NEUTROPHILS % (AUTO) 65.7 % (42.0-75.0); PLATELET COUNT 249 X10^3/uL (150.0-450.0); RED BLOOD COUNT 3.91 X10^6/uL (4.7-6.0); RED CELL DISTRIBUTION WIDTH 12.8 % (11.6-16.5); WHITE BLOOD COUNT 7.6 X10^3/uL (3.6-10.0)
[2024-02-06 05:28] LABS: ALANINE AMINOTRANSFERASE 12 Units/L (12-78); ALBUMIN 2.9 g/dL (3.4-5.0); ALKALINE PHOSPHATASE 46 Units/L (46-116); ASPARTATE AMINO TRANSFERASE 10 Units/L (15-37); BLOOD UREA NITROGEN 4 mg/dL (7-18); CALCIUM 8.3 mg/dL (8.5-10.1); CARBON DIOXIDE 33.1 mmol/L (21-32); CHLORIDE 103 mmol/L (98-107); COR CA(FOR HYPOALB) 9.2 mg/dL (8.5-10.1); CREATININE 0.63 mg/dL (0.70-1.30); GLUCOSE 107 mg/dL (65-99); POTASSIUM 3.9 mmol/L (3.5-5.1); SODIUM 139 mmol/L (136-145); TOTAL PROTEIN 6.5 g/dL (6.4-8.2); eGFR NON BLACK RACES > 60 (>60)
--- NOTE | 2024-02-06 07:51 | RAD ---
EXAM: KUB HISTORY: Abdominal pain follow-up partial small bowel obstruction COMPARISON: 02/05/2024 KUB, CT abdomen pelvis 02/03/2024 FINDINGS: Multiple dilated small bowel loops are identified in the left abdomen. There is significant gas pr esent distally within the colon. Findings remain suggestive of partial small bowel obstruction. No abnormal masses or abnormal calcifications identified. Regional skeleton is unremarkable. IMPRESSION: Findings remains suggestive for partial small bowel obstruction THIS IS AN ELECTRONICALLY VERIFIED FINAL REPORT 02/06/2024 7:44 AM - Electronically signed by Mohan Pop MD
[2024-02-06] MEDS: FLEET ENEMA ADULT PR ONE (09:21)
--- NOTE | 2024-02-07 07:02 | RAD ---
EXAMINATION: KUB HISTORY: PARTIAL BOWEL OBSTRUCTION ; COLON CA, COLON RESECTION 03/29/2023 COLOSTOMY REVERSAL . COMPARISON STUDY: KUB 02/06/2024 TECHNIQUE: 2 supine AP views of the abdomen and pelvis FINDINGS: Mild amount of feces and mild gaseous distention of the colon. The visualized soft tissue outlines a nd osseous structures appear intact. Lower bony pelvis was not imaged. IMPRESSION: Mild amount of feces. Normal bowel-gas pattern for the supine view. THIS IS AN ELECTRONICALLY VERIFIED FINAL REPORT 02/07/2024 7:00 AM - Electronically signed by Dee Frazier MD
[2024-02-07 12:24] VITALS: BP 121/68; PULSE 66; RESP 19; TEMP 98.3; O2SAT 99
== END 2024-02-07 13:08 | disposition home or self-care (01) | DRG 390 ==
LOC: ER 09:51 → ICU 12:55
PROVIDERS: ADMIT Surgery; ATTEND Surgery
DX: R10.84 Generalized abdominal pain; K56.690 Other partial intestinal obstruction; E83.42 Hypomagnesemia; R11.2 Nausea with vomiting, unspecified; Z85.038 Personal history of other malignant neoplasm of large intestine; Z90.49 Acquired absence of other specified parts of digestive tract